=== PATIENT | female | born 1945 | race Caucasian/White ===

== ENCOUNTER 2019-01-13 12:48 | Inpatient (IN) | payer MEDICARE, BC ==
--- NOTE | 2019-01-13 13:26 | ED ---
General Adult HPI <Monty Jackson - Last Filed: 01/13/19 16:25> - General Source: patient, RN notes reviewed, old records reviewed Mode of arrival: wheelchair Limitations: no limitations <Franc Kilpatrick - Last Filed: 01/13/19 16:38> - General Chief complaint: ENT Stated complaint: Nose bleed Time Seen by Provider: 01/13/19 13:05 - History of Present Illness Initial comments: 73-year-old female patient past medical history of hypertension, hyperlipidemia , CVA presents to ED today with complaints stemming from epistaxis. Patient reports that she was seen yesterday at [facility] for epistaxis. Patient had both nares packed and was instructed to follow-up with ENT. Patient reports that today she is having some blood drip down throat which she is coughing out. Patient reports that she spoke with an individual at the ENT office whom she was referred to who recommended presenting to ED. Patient takes Plavix and aspirin. Patient currently denies any other complaints today. Patient denies chest pain, shortness of breath, abdominal pain, nausea vomiting diarrhea, headache, changes in vision. Patient still has both nares packed. Systemic: Pt denies fatigue, myalgia, fever/chills, rash. Pt denies weakness, night sweats, weight loss. Neuro: Pt denies headache, visual disturbances, syncope or pre-syncope. HEENT: Pt denies ocular discharge or irritation, otalgia, rhinorrhea, pharyngitis or notable lymphadenopathy. Cardiopulmonary: Pt denies chest pain, SOB, heart palpitations, dyspnea on exertion. Abdominal/GI: Pt denies abdominal pain, n/v/d. : Pt denies dysuria, burning w/ urination, frequency/urgency. Denies new onset urinary or bowel incontinence. MSK: Pt denies myalgia, loss of strength or function in extremities. Neuro: Pt denies new onset weakness, paresthesias. (Franc Kilpatrick) - Related Data Home Medications Medication Instructions Recorded Confirmed Aspirin [[place] Aspirin EC] 81 mg PO Q48H 01/13/19 01/13/19 Atorvastatin [Lipitor] 20 mg PO DAILY 01/13/19 01/13/19 Citalopram Hydrobromide [CeleXA] 10 mg PO DAILY 01/13/19 01/13/19 Clopidogrel [Plavix] 75 mg PO DAILY 01/13/19 01/13/19 Dokxvobw-Ssvmd-Lhmqzi Ophth 1 applic LEFT EYE DAILY 01/13/19 01/13/19 [Neosporin Ophth Oint] amLODIPine [Norvasc] 10 mg PO DAILY 01/13/19 01/13/19 Allergies Allergy/AdvReac Type Severity Reaction Status Date / Time No Known Allergies Allergy Verified 01/13/19 13:49 Review of Systems ROS Other: All systems not noted in ROS Statement are negative. <Monty Jackson - Last Filed: 01/13/19 16:25> ROS Other: All systems not noted in ROS Statement are negative. <Franc Kilpatrick - Last Filed: 01/13/19 16:38> ROS Statement: Those systems with pertinent positive or pertinent negative responses have been documented in the HPI. Past Medical History Past Medical History: Hyperlipidemia, Hypertension History of Any Multi-Drug Resistant Organisms: None Reported Past Psychological History: Anxiety Smoking Status: Former smoker Past Alcohol Use History: None Reported Past Drug Use History: None Reported <Franc Kilpatrick - Last Filed: 01/13/19 16:38> General Exam <Monty Jackson - Last Filed: 01/13/19 16:25> Limitations: no limitations <Franc Kilpatrick - Last Filed: 01/13/19 16:38> - General Exam Comments Initial Comments: Constitutional: NAD, AOX3, Pt has pleasant affect. HEENT: NC/AT, trachea midline, neck supple, no lymphadenopathy. Posterior pharynx non erythematous, without exudates. External ears appear normal, without discharge. Mucous membranes moist. Eyes PERRLA, EOM intact. There is no scleral icterus. No pallor noted. Anterior nasal packing appears in place, both nares packed. Cardiopulmonary: RRR, no murmurs, rubs or gallops, no JVD noted. Lungs CTAB in anterior and posterior taylor. No peripheral edema. Abdominal exam: Abdomen soft and non-distended. Abdomen non-tender to palpation in all 4 quadrants. Bowel sounds active in LLQ. No hepatosplenomegaly. No ecchymosis Neuro: CN II-XII grossly intact. No nuchal rigidity. MSK: No posterior calf tenderness bilaterally, homans sign negative bilaterally. Posterior tibialis and radial pulse +2 bilaterally. Sensation intact in upper and lower extremities. Full active ROM in upper and lower extremities, 5/5 stregnth. (Franc Kilpatrick) Course <Monty Jackson - Last Filed: 01/13/19 16:25> <Franc Kilpatrick - Last Filed: 01/13/19 16:38> Vital Signs 01/13/19 01/13/19 01/13/19 12:57 14:01 15:10 Temperature 97.8 F Pulse Rate 89 93 71 Respiratory 18 20 20 Rate Blood Pressure 102/42 124/56 113/56 O2 Sat by Pulse 99 99 99 Oximetry - Reevaluation(s) Reevaluation #1: 01/13/19 16:25 Case was discussed with practitioner. Chart reviewed. Case was also discussed with Dr. Brady, who will admit covered for Dr. Au, who admits for Dr. Garcia. Patient will be provided one unit of packed red cells. Patient will be held for observation with ENT consult. No active bleeding at this time. (Monty Jackson) Medical Decision Making - Lab Data Result diagrams: 01/13/19 15:05 <Monty Jackson - Last Filed: 01/13/19 16:25> - Lab Data Result diagrams: 01/13/19 15:05 <Franc Kilpatrick - Last Filed: 01/13/19 16:38> - Medical Decision Making 73-year-old female patient past medical history of hypertension, hyperlipidemia , CVA presents to ED today with complaints stemming from epistaxis. Patient reports that she was seen yesterday at [facility] for epistaxis. Patient had both nares packed and was instructed to follow-up with ENT. Patient reports that today she is having some blood drip down throat which she is coughing out. Patient reports that she spoke with an individual at the ENT office whom she was referred to who recommended presenting to ED. Patient takes Plavix and aspirin. Patient currently denies any other complaints today. Patient denies chest pain, shortness of breath, abdominal pain, nausea vomiting diarrhea, headache, changes in vision. Patient still has both nares packed. Physical exam displayed nasal packing. No other acute pathology. Laboratory investigations revealed a mild leukocytosis likely reactive, hemoglobin of 6.7. Patient to be transfused 1 unit of blood, be admitted to observation for continued evaluation and ENT evaluation. Case discussed in depth with Dr. Jackson. (Franc Kilpatrick) - Lab Data Lab Results 01/13/19 01/13/19 Range/Units 15:05 15:05 WBC 16.8 H (3.8-10.6) k/uL RBC 2.27 L (3.80-5.40) m/uL Hgb 6.7 L* (11.4-16.0) gm/dL Hct 20.3 L (34.0-46.0) % MCV 89.6 (80.0-100.0) fL MCH 29.7 (25.0-35.0) pg MCHC 33.1 (31.0-37.0) g/dL RDW 14.8 (11.5-15.5) % Plt Count 297 (150-450) k/uL Neutrophils % 75 % Lymphocytes % 17 % Monocytes % 5 % Eosinophils % 1 % Basophils % 1 % Neutrophils # 12.6 H (1.3-7.7) k/uL Lymphocytes # 2.8 (1.0-4.8) k/uL Monocytes # 0.9 (0-1.0) k/uL Eosinophils # 0.2 (0-0.7) k/uL Basophils # 0.1 (0-0.2) k/uL PT 10.5 (9.0-12.0) sec INR 1.0 (<1.2) APTT 22.5 (22.0-30.0) sec Disposition <Monty Jackson - Last Filed: 01/13/19 16:25> Is patient prescribed a controlled substance at d/c from ED?: No Time of Disposition: 16:00 <Franc Kilpatrick - Last Filed: 01/13/19 16:38> Clinical Impression: Epistaxis Disposition: ADMITTED IP TO THIS HOSP Condition: Serious Additional Instructions: Patient to adhere to previously discussed treatment plan and will take medication(s) as directed. Patient to follow up with PCP in 1-2 days. Patient to return to ED if symptoms do not improve. Please call ENT specialist today to set up appointment. Please tell them that you were diagnosed with a posterior epistaxis at [facility] yesterday and were discharged with both nostrils packed. Please tell them that you are having some continued bleeding and need to be seen tomorrow. Please return to ED if new signs or symptoms develop or if condition worsens in anyway Referrals: Bala Garcia MD [Primary Care Provider] - 1-2 days Sony Raza DO [Doctor of Osteopathic Medicine] - 1-2 days
[2019-01-13 15:37] LABS: Partial Thromboplastin Time 22.5 sec (22.0-30.0); Prothrombin Time 10.5 sec (9.0-12.0)
[2019-01-13 15:43] LABS: Basophils # (A) 0.1 k/uL (0-0.2); Basophils % (A) 1 %; Eosinophils # (A) 0.2 k/uL (0-0.7); Eosinophils % (A) 1 %; HCT 20.3 % (34.0-46.0); Lymphocytes # (A) 2.8 k/uL (1.0-4.8); Lymphocytes % (A) 17 %; MCH 29.7 pg (25.0-35.0); MCHC 33.1 g/dL (31.0-37.0); MCV 89.6 fL (80.0-100.0); Mean Platelet Volume 7.3; Monocytes # (A) 0.9 k/uL (0-1.0); Monocytes % (A) 5 %; Neutrophils # (A) 12.6 k/uL (1.3-7.7); Neutrophils % (A) 75 %; Platelet Count 297 k/uL (150-450); RBC 2.27 m/uL (3.80-5.40); RDW 14.8 % (11.5-15.5); WBC 16.8 k/uL (3.8-10.6)
[2019-01-13 15:45] LABS: HGB 6.7 gm/dL (11.4-16.0)
[2019-01-13] MEDS ORDERED: SODIUM CHLORIDE 0.9% 1,000 ML IV STA (15:59)
[2019-01-13] MEDS ORDERED: NALOXONE 0.4 MG/ML 1 ML VIAL IV PRN (16:34)
[2019-01-13] MEDS: SODIUM CHLORIDE 0.9% 1,000 ML IV SCH (22:24)
--- NOTE | 2019-01-13 23:25 | CONS ---
CONSULTATION REASON FOR CONSULTATION: Epistaxis. HISTORY: This is a 73-year-old white female who was admitted earlier today with epistaxis and anemia. The patient is not a particularly good historian, and therefore much of the history is obtained from her ER notes and the nursing staff. She had acute epistaxis yesterday and went to the hospital in [place] and had bilateral packs placed in her nose. Apparently this was controlled and she was discharged with a recommendation of ENT followup. She had recurrent bleeding today posteriorly that she was coughing up, and therefore, apparently due to the fact that she was going to be followed here locally, she went to the ER here. She was evaluated in the ER and admitted. She does take Plavix and aspirin at home and does have history of hypertension and apparently a history of epistaxis occasionally in the past also. PAST MEDICAL HISTORY: According to the nurses: 1. CVA. 2. Hyperlipidemia. 3. Hypertension. 4. Anxiety. SOCIAL HISTORY: Smoking in the past. Alcohol none. ALLERGIES: NO KNOWN DRUG ALLERGIES. HOME MEDICATIONS: 1. Aspirin. 2. Lipitor. 3. Celexa. 4. Plavix. 5. Neomycin ophthalmic ointment. 6. Norvasc. REVIEW OF SYSTEMS: The patient denies any fever or chills, headache, visual disturbance, syncope, nasal drainage other than bleeding. Denies chest pain, abdominal pain, myalgia. PHYSICAL EXAMINATION: The patient is alert and awake, in no acute distress. HEENT: Head normocephalic and atraumatic. Eyes show some drooping of the left lower eyelid, which she states is chronic. The ears show clear canals with tympanic membranes unremarkable, mobile. Nose shows bilateral single balloon packs. The right nasal pack is saturated with blood and there is in the oropharynx some posterior bleeding. The left nasal pack was initially removed, which was only approximately 4 cm long. There was no bleeding and no evidence of old blood in the left nasal cavity. The right nasal pack was then removed. This was an approximately 6 cm balloon pack. Initially there was no bleeding; however, then there was some quite profuse bleeding noted, including with nasal endoscopy posterosuperiorly, although this was too far posterior to have any cautery performed. Therefore a 10 cm double balloon Rhino Rocket Pack was placed and the balloons were inflated. This controlled the bleeding both anteriorly and posteriorly. NECK: Supple without adenopathy or tenderness. LABS: Labs showed hemoglobin of 6.7 at 3 p.m. today. ASSESSMENT: 1. Right posterior epistaxis. 2. History of hypertension. 3. Anemia. PLAN: The patient apparently is going to be moved to [facility] for further monitoring. She is getting her second unit of red blood cells and the nurses have been in contact with the hospitalist; she is under their service. She will be placed on Kefzol prophylactically also while the pack is in place, which is generally left in place for 3 days. Note that our service was not contacted about this patient until approximately 9 p.m. tonight despite the above history, including the anemia and ongoing epistaxis. If the patient is stable in the meantime, she could be discharged with followup early next week for nasal pack removal, but would need prophylactic antibiotics in the meantime. If there are questions or concerns, please feel free to contact me. MMDIEGO / IJN: [id number] /
--- NOTE | 2019-01-13 23:43 | P.HPIM ---
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 Patient has been havingon and off for several days. Patient did have nosebleed home yesterday and initially presented to [facility] where she had packing of both nostrils and was recommended to follow with ENT if the bleeding recurs. Patient did havebleeding again this morning and was also coughing of blood which made her to come to ER. Patient tried to reach ENT office but was recommended to come to ER. Patient otherwise denied any complaints of trauma. No nausea vomiting or abdominal pain. No headache or dizziness or lightheadedness. Denied any hematemesis or melena. No cough or sputum production. Denied recent upper respiratory infections.No complaints of chest pain or shortness of breath. Patient does take aspirin Plavix for secondary stroke prophylaxis. Review of Systems Constitutional: Patient denies any fever or chills . No generalized weakness or weight loss. Abdomen: Patient denied nausea vomiting and diarrhea and abdominal pain. Cardiovascular: Patient denies any chest pain or short of breath no palpitations. Respiratory: patient denied any cough is from production. No shortness of breath. Patient does have Neurologic: Patient denied any numbness or tingling headache. Musculoskeletal: Patient denies any complaints of joint swelling or deformity. Skin: Negative Psychiatric: Negative Endocrine: No heat or cold intolerance. No recent weight gain. Genitourinary: No dysuria or hematuria. All other 14 point ROS negative except the above Past Medical History Past Medical History: Hyperlipidemia, Hypertension Additional Past Medical History / Comment(s): CVA LAST YEAR, L SIDED WEAKNESS. NORMALLY USE A WHEELCHAIR AT HELPS HER TO PIVOT History of Any Multi-Drug Resistant Organisms: None Reported Past Surgical History: No Surgical Hx Reported Additional Past Anesthesia/Blood Transfusion Reaction / Comment(s): NEVER HAD A BLOOD TRANSFUSION Past Psychological History: Anxiety Smoking Status: Former smoker Past Alcohol Use History: None Reported Past Drug Use History: None Reported - Past Family History Mother Family Medical History: No Reported History Father Family Medical History: No Reported History Medications and Allergies Home Medications Medication Instructions Recorded Confirmed Type Aspirin [[place] Aspirin EC] 81 mg PO Q48H 01/13/19 01/13/19 History Atorvastatin [Lipitor] 20 mg PO DAILY 01/13/19 01/13/19 History Citalopram Hydrobromide [CeleXA] 10 mg PO DAILY 01/13/19 01/13/19 History Clopidogrel [Plavix] 75 mg PO DAILY 01/13/19 01/13/19 History Ghfglutu-Tprvz-Niyiku Ophth 1 applic LEFT EYE DAILY 01/13/19 01/13/19 History [Neosporin Ophth Oint] amLODIPine [Norvasc] 10 mg PO DAILY 01/13/19 01/13/19 History Allergies Allergy/AdvReac Type Severity Reaction Status Date / Time No Known Allergies Allergy Verified 01/13/19 16:54 Physical Exam Vitals: Vital Signs Temp Pulse Pulse Resp BP BP Pulse Ox 01/13/19 22:44 96 109/61 97 01/13/19 22:35 102 H 98/55 90 L 01/13/19 22:25 103 H 115/59 90 L 01/13/19 22:05 101 H 12 107/44 98 01/13/19 21:35 99.4 F 103 H 20 101/50 97 01/13/19 21:34 97.7 F 92 18 92/41 90 L 01/13/19 21:25 98.6 F 92 18 86/43 97 01/13/19 18:39 97.7 F 98 24 109/54 100 01/13/19 17:45 98.3 F 77 20 106/56 96 01/13/19 15:10 71 20 113/56 99 01/13/19 14:01 93 20 124/56 99 01/13/19 12:57 97.8 F 89 18 102/42 99 Intake and Output 01/13/19 01/13/19 01/14/19 14:59 22:59 06:59 Intake Total 0 Output Total 200 Balance -200 Intake: Blood Product 0 Rc As-1 Unit 0 [id number] Output: Urine 200 Other: Voiding Method Bedside Commode # Voids 1 Weight 90.718 kg PHYSICAL EXAMINATION: Patient is lying in the bed comfortably, no acute distress, awake alert and oriented.. HEENT: Normocephalic. Neck is supple. Pupils reactive. Nostrils patent bilaterally. Oral cavity is moist. Ears reveal no drainage. Neck reveals no JVD, carotid bruits, or thyromegaly. CHEST EXAMINATION: Trachea is central. Symmetrical expansion. Lung taylor clear to auscultation and percussion. CARDIAC: Normal S1, S2 with no gallops. No murmurs ABDOMEN: Soft. Bowel sounds normal. No organomegaly. No abdominal bruits. Extremities: reveal no edema. No clubbing or cyanosis Neurologically awake, alert, oriented x3 with left-sided weakness. Skin: No rash or skin lesions. Psychiatric: Coperative. Nonsuicidal Musculoskeletal: No joint swelling or deformity. Normal range of motion. Results CBC & Chem 7: 01/13/19 15:05 Labs: Abnormal Lab Results - Last 24 Hours (Table) 01/13/19 01/13/19 Range/Units 15:05 18:15 WBC 16.8 H (3.8-10.6) k/uL RBC 2.27 L (3.80-5.40) m/uL Hgb 6.7 L* (11.4-16.0) gm/dL Hct 20.3 L (34.0-46.0) % Neutrophils # 12.6 H (1.3-7.7) k/uL Crossmatch See Detail Thrombosis Risk Factor Assmnt - DVT/VTE Prophylaxis DVT/VTE Prophylaxis: Mechanical Prophylaxis ordered Assessment and Plan Assessment: Acute epistaxis likely posterior bleed Acute blood loss anemia. hemoglobin 6.7. Status post 1 unit PRBC transfusion History of CVA with left-sided weakness Hypertension Hyperlipidemia Anxiety Previous history of smoking DVT prophylaxis with SCDs Plan: Patient will be transfused with 1 unit of PRBC. Monitor H&H. No active bleeding at this time. Will hold aspirin and Plavix for possible ENT intervention. Hold blood pressure, Norvasc due to hypotension. Continue to follow closely and further recommendations based on the clinical course. Time with Patient: Greater than 30
[2019-01-14] MEDS: ceFAZolin IN SWFI 2 GM/20 ML SYRINGE IVP SCH ×3 (00:03→17:36)
[2019-01-14] MEDS: PANTOPRAZOLE 40 MG TABLET PO SCH (06:28)
[2019-01-14 06:47] LABS: Anion Gap 7 mmol/L; Blood Urea Nitrogen 39 mg/dL (7-17); Carbon Dioxide 21 mmol/L (22-30); Chloride 112 mmol/L (98-107); Glucose 112 mg/dL (74-99); Potassium 4.1 mmol/L (3.5-5.1); Sodium 140 mmol/L (137-145)
[2019-01-14 06:59] LABS: Basophils # (A) 0.1 k/uL (0-0.2); Basophils % (A) 0 %; Eosinophils % (A) 0 %; HCT 20.7 % (34.0-46.0); Lymphocytes % (A) 12 %; MCH 28.9 pg (25.0-35.0); MCV 90.3 fL (80.0-100.0); Monocytes # (A) 1.2 k/uL (0-1.0); Monocytes % (A) 7 %; Neutrophils # (A) 13.7 k/uL (1.3-7.7); Neutrophils % (A) 80 %; Platelet Count 235 k/uL (150-450); RBC 2.29 m/uL (3.80-5.40); RDW 15.3 % (11.5-15.5); WBC 17.2 k/uL (3.8-10.6)
[2019-01-14 07:23] LABS: HGB 6.6 gm/dL (11.4-16.0)
--- NOTE | 2019-01-14 07:50 | PCN ---
PROCEDURE NOTE PREOPERATIVE DIAGNOSIS: Right posterior epistaxis. POSTOPERATIVE DIAGNOSIS: Right posterior epistaxis. PROCEDURE: Nasal endoscopy, bilateral. ANESTHESIA: None. ESTIMATED BLOOD LOSS: None from the procedure. COMPLICATIONS: None. FINDINGS: Nasal septal spur on the left with no active bleeding on the left side. On the right, there is posterior epistaxis which is quite profuse posterosuperiorly with the exact site not able to be ascertained due to the perfuse nature of the bleeding. This appeared medial to the middle turbinate. PROCEDURE DESCRIPTION: The patient was in her hospital room. She has had uncontrolled epistaxis. Her packs that were in place were removed in order to evaluate. Full 0 degree nasal endoscopic exam was performed bilaterally with the above findings noted. The nasal endoscope was then withdrawn. She did require a whole posterior pack on the right to control bleeding. MMODL / IJN: [id number] /
[2019-01-14] MEDS: CITALOPRAM HYDROBROMIDE 20 MG TAB PO SCH (08:11)
[2019-01-14] MEDS: ATORVASTATIN 20 MG TAB PO SCH (08:11)
[2019-01-14] MEDS: BACITRACIN LEFT EYE SCH (08:14)
[2019-01-14] MEDS: NEOMYCIN LEFT EYE SCH (08:14)
[2019-01-14] MEDS: POLYMYXIN B LEFT EYE SCH (08:14)
[2019-01-14] MEDS: SODIUM CHLORIDE 0.9% 1,000 ML IV SCH (17:34)
[2019-01-14 19:02] LABS: Basophils # (A) 0.1 k/uL (0-0.2); Basophils % (A) 0 %; Eosinophils # (A) 0.3 k/uL (0-0.7); Eosinophils % (A) 1 %; HGB 7.4 gm/dL (11.4-16.0); Lymphocytes # (A) 1.5 k/uL (1.0-4.8); Lymphocytes % (A) 7 %; MCH 29.3 pg (25.0-35.0); MCHC 32.4 g/dL (31.0-37.0); MCV 90.5 fL (80.0-100.0); Mean Platelet Volume 7.9; Monocytes # (A) 1.1 k/uL (0-1.0); Monocytes % (A) 5 %; Neutrophils # (A) 19.6 k/uL (1.3-7.7); Neutrophils % (A) 86 %; Platelet Count 284 k/uL (150-450); RBC 2.54 m/uL (3.80-5.40); RDW 15.7 % (11.5-15.5); WBC 22.9 k/uL (3.8-10.6)
[2019-01-15] MEDS: ceFAZolin IN SWFI 2 GM/20 ML SYRINGE IVP SCH ×4 (00:34→23:43)
--- NOTE | 2019-01-15 01:09 | P.PN ---
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 Patient has been havingon and off for several days. Patient did have nosebleed home yesterday and initially presented to [facility] where she had packing of both nostrils and was recommended to follow with ENT if the bleeding recurs. Patient did havebleeding again this morning and was also coughing of blood which made her to come to ER. Patient tried to reach ENT office but was recommended to come to ER. Patient otherwise denied any complaints of trauma. No nausea vomiting or abdominal pain. No headache or dizziness or lightheadedness. Denied any hematemesis or melena. No cough or sputum production. Denied recent upper respiratory infections.No complaints of chest pain or shortness of breath. Patient does take aspirin Plavix for secondary stroke prophylaxis. 01/14/2019 Patient was seen by ENT last night and posterior nasal packing was done. Currently no active bleeding noted. Otherwise hemoglobin dropped to 6.6 today. Patient is being transfused with 1 unit PRBC. Patient denied any complaints of chest pain or shortness of breath. Patient is being continued on antibiotics in the form of cefazolin. No fever no chills. No nausea vomiting or abdominal pain. No headache or dizziness or lightheadedness. Current medications reviewed. Objective - Vital Signs Vital signs: Vital Signs Temp 98.5 F 01/14/19 16:00 Pulse 101 H 01/14/19 16:00 Resp 20 01/14/19 21:43 BP 97/66 01/14/19 16:00 Pulse Ox 92 L 01/14/19 16:00 Intake & Output 01/14/19 01/14/19 01/15/19 06:59 18:59 06:59 Intake Total 630 310 Output Total 200 Balance 430 310 Weight 115 kg Intake: Intake, IV Titration 80 Amount Sodium Chloride 0.9% 1, 80 000 ml @ 20 mls/hr IV . Q24H [facility] Rx#:[id number] Oral 240 Blood Product 310 310 Rc As-1 Unit 310 [id number] Rc Cpda-1 Unit 310 [id number] Output: Urine 200 Other: Voiding Method Bedpan Diaper Bedpan # Voids 2 - Exam PHYSICAL EXAMINATION: Patient is lying in the bed comfortably, no acute distress, awake alert and oriented.. HEENT: Normocephalic. Neck is supple. Pupils reactive. Nostrils patent bilaterally. Oral cavity is moist. Ears reveal no drainage. Neck reveals no JVD, carotid bruits, or thyromegaly. CHEST EXAMINATION: Trachea is central. Symmetrical expansion. Lung taylor clear to auscultation and percussion. CARDIAC: Normal S1, S2 with no gallops. No murmurs ABDOMEN: Soft. Bowel sounds normal. No organomegaly. No abdominal bruits. Extremities: reveal no edema. No clubbing or cyanosis Neurologically awake, alert, oriented x3 with left-sided weakness. Skin: No rash or skin lesions. Psychiatric: Coperative. Nonsuicidal Musculoskeletal: No joint swelling or deformity. Normal range of motion. - Labs CBC & Chem 7: 01/14/19 18:40 01/14/19 05:54 Labs: Abnormal Lab Results - Last 24 Hours (Table) 01/13/19 01/14/19 01/14/19 Range/Units 18:15 05:54 05:54 WBC 17.2 H (3.8-10.6) k/uL RBC 2.29 L (3.80-5.40) m/uL Hgb 6.6 L* (11.4-16.0) gm/dL Hct 20.7 L (34.0-46.0) % RDW (11.5-15.5) % Neutrophils # 13.7 H (1.3-7.7) k/uL Monocytes # 1.2 H (0-1.0) k/uL Chloride 112 H (98-107) mmol/L Carbon Dioxide 21 L (22-30) mmol/L BUN 39 H (7-17) mg/dL Glucose 112 H (74-99) mg/dL Calcium 8.0 L (8.4-10.2) mg/dL Crossmatch See Detail 01/14/19 Range/Units 18:40 WBC 22.9 H (3.8-10.6) k/uL RBC 2.54 L (3.80-5.40) m/uL Hgb 7.4 L (11.4-16.0) gm/dL Hct 23.0 L (34.0-46.0) % RDW 15.7 H (11.5-15.5) % Neutrophils # 19.6 H (1.3-7.7) k/uL Monocytes # 1.1 H (0-1.0) k/uL Chloride (98-107) mmol/L Carbon Dioxide (22-30) mmol/L BUN (7-17) mg/dL Glucose (74-99) mg/dL Calcium (8.4-10.2) mg/dL Crossmatch Assessment and Plan Assessment: Acute epistaxis likely posterior bleed. Status post nasal packing by ENT. Acute blood loss anemia. hemoglobin 6.7--6.6. Status post 2 unit PRBC transfusion on 01/13/2019 and 1 unit PRBC on 01/14/2019 History of CVA with left-sided weakness Hypertension Hyperlipidemia Anxiety Previous history of smoking DVT prophylaxis with SCDs Plan: Monitor H&H. Transfuse as needed. No active bleeding at this time. Will hold aspirin and Plavix . Appreciate ENT evaluation.. Hold blood pressure medications, Norvasc due to hypotension. Continue to follow closely and further recommendations based on the clinical course. Time with Patient: Greater than 30
[2019-01-15 10:08] LABS: Anisocytosis Slight; Basophils # (A) 0.1 k/uL (0-0.2); Basophils % (A) 0 %; Eosinophils % (A) 0 %; HCT 21.4 % (34.0-46.0); HGB 7.2 gm/dL (11.4-16.0); Lymphocytes # (A) 1.8 k/uL (1.0-4.8); Lymphocytes % (A) 7 %; MCH 29.9 pg (25.0-35.0); MCHC 33.9 g/dL (31.0-37.0); MCV 88.3 fL (80.0-100.0); Mean Platelet Volume 7.3; Monocytes # (A) 1.4 k/uL (0-1.0); Monocytes % (A) 6 %; Neutrophils # (A) 21.3 k/uL (1.3-7.7); Neutrophils % (A) 86 %; Platelet Count 302 k/uL (150-450); RBC 2.42 m/uL (3.80-5.40); RDW 17.8 % (11.5-15.5); WBC 24.8 k/uL (3.8-10.6)
[2019-01-15] MEDS: CITALOPRAM HYDROBROMIDE 20 MG TAB PO SCH (10:10)
[2019-01-15] MEDS: PANTOPRAZOLE 40 MG TABLET PO SCH (10:10)
[2019-01-15] MEDS: ATORVASTATIN 20 MG TAB PO SCH (10:11)
[2019-01-15] MEDS: ACETAMINOPHEN TAB 325 MG TAB PO PRN ×3 (10:56→23:44)
[2019-01-15] MEDS: NEOMYCIN LEFT EYE SCH (10:58)
[2019-01-15] MEDS: POLYMYXIN B LEFT EYE SCH (10:58)
[2019-01-15] MEDS: BACITRACIN LEFT EYE SCH (10:58)
[2019-01-15 11:03] LABS: Anion Gap 7 mmol/L; Blood Urea Nitrogen 19 mg/dL (7-17); Carbon Dioxide 22 mmol/L (22-30); Chloride 111 mmol/L (98-107); Glucose 134 mg/dL (74-99); Potassium 3.7 mmol/L (3.5-5.1); Sodium 140 mmol/L (137-145)
--- NOTE | 2019-01-15 16:08 | XR ---
EXAMINATION TYPE: XR chest 1V DATE OF EXAM: 01/15/2019 COMPARISON: None INDICATION: Cough TECHNIQUE: Single frontal view of the chest is obtained. FINDINGS: The heart size is normal. The pulmonary vasculature is normal. Lingular infiltrate is present at the cardiac apex. No additional infiltrates are evident. There is a chronic rotator cuff tear of the right shoulder and suspected at the left shoulder. IMPRESSION: 1. Clinical correlation recommended for lingular pneumonia. Follow-up can be performed.
[2019-01-15] MEDS: SODIUM CHLORIDE 0.9% 1,000 ML IV SCH (16:44)
[2019-01-15 17:02] LABS: Appearance,Urine Clear (Clear); Bacteria,Urine Rare /hpf; Bilirubin,Urine Negative (Negative); Blood,Urine Negative (Negative); Color,Urine Yellow; Glucose,Urine (UA) Negative (Negative); Ketones,Urine Trace (Negative); Leukocyte Esterase,Urine Trace (Negative); Mucus,Urine Rare /hpf; Nitrite,Urine Negative (Negative); PH, Urine 5.5 (5.0-8.0); Protein,Urine Trace (Negative); RBC,Urine 1 /hpf (0-5); Specific Gravity,Urine 1.029 (1.001-1.035); Squamous Epithelial Cell,Urine 1 /hpf (0-4); Urobilinogen,Urine <2.0 mg/dL (<2.0)
--- NOTE | 2019-01-15 18:42 | PN ---
PROGRESS NOTE HISTORY: Patient had a posterior epistaxis on the right, which was treated with a posterior nasal packing a day and a half ago. She has had no further epistaxis. Her hemoglobin is stabilized, but still anemic at 7.2 this morning. Her white blood cell count has been rising somewhat and they are working this up presently. Is unknown as to her baseline labs otherwise. She does have some discomfort from the nasal pack, but this is well controlled with pain medication. She is having no purulent nasal discharge. PHYSICAL EXAM: The patient is up in the hospital chair in no acute distress. She is conversant, awake and alert. The nasal exam shows no bleeding on the left. The double balloon pack is in place on the right without any active bleeding. Oropharynx shows no blood or abnormal lesions. NECK: Supple without adenopathy or tenderness. ASSESSMENT: 1. Right posterior epistaxis-currently controlled. 2. Anemia. PLAN: Generally speaking, nasal pack such as this is left in place for at least 3 days. This is too early to remove at this point. Some of the decision on removal of the packing is up to the patient's disposition. If she is able to be discharged on the weekend, then we could see her back in our office in the early week for packing removal. If she is here through the , this may be able to be removed later on Friday or Friday as I will be out of town most of the weekend. We will keep tabs on the patient's disposition and again if she is able to be stable and discharged over the weekend, then please have her contact our office Friday morning to be seen Friday or Friday for packing removal. If there are questions or concerns, please contact me in the meantime. MMODL / IJN: [id number] /
--- NOTE | 2019-01-15 23:21 | P.PN ---
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 Patient has been havingon and off for several days. Patient did have nosebleed home yesterday and initially presented to [facility] where she had packing of both nostrils and was recommended to follow with ENT if the bleeding recurs. Patient did havebleeding again this morning and was also coughing of blood which made her to come to ER. Patient tried to reach ENT office but was recommended to come to ER. Patient otherwise denied any complaints of trauma. No nausea vomiting or abdominal pain. No headache or dizziness or lightheadedness. Denied any hematemesis or melena. No cough or sputum production. Denied recent upper respiratory infections.No complaints of chest pain or shortness of breath. Patient does take aspirin Plavix for secondary stroke prophylaxis. 01/14/2019 Patient was seen by ENT last night and posterior nasal packing was done. Currently no active bleeding noted. Otherwise hemoglobin dropped to 6.6 today. Patient is being transfused with 1 unit PRBC. Patient denied any complaints of chest pain or shortness of breath. Patient is being continued on antibiotics in the form of cefazolin. No fever no chills. No nausea vomiting or abdominal pain. No headache or dizziness or lightheadedness. 01/15/2019 Patient denied any complaints of increasing nasal pain. Posterior nasal packing is in place and ENT recommends for it to be continued at least for 3 days. Patient continues to have increasing WBC count. WBC count is 24.0 today. Chest x-ray showed correlate for lingular pneumonia. UA is negative for infection Patient does not have complaints of shortness of breath. No fever. No tachycardia. No tachypnea. No complaints of sputum production. Patient is currently on cefazolin which will be continued and monitor next 24 hours for any signs of infection. Follow-up CBC and BMP tomorrow. Otherwise patient is currently hemodynamically stable. Current medications reviewed. Objective - Vital Signs Vital signs: Vital Signs Temp 97.7 F 01/15/19 15:00 Pulse 89 01/15/19 17:45 Resp 20 01/15/19 15:00 BP 102/54 01/15/19 15:00 Pulse Ox 93 L 01/15/19 15:00 Intake & Output 01/15/19 01/15/19 01/16/19 06:59 18:59 06:59 Intake Total 240 Output Total 300 Balance -60 Intake: Oral 240 Output: Urine 300 Other: Voiding Method Bedpan Bedpan # Voids 1 3 # Bowel Movements 0 - Exam PHYSICAL EXAMINATION: Patient is lying in the bed comfortably, no acute distress, awake alert and oriented.. HEENT: Normocephalic. Neck is supple. Pupils reactive. Nostrils patent bilaterally. Oral cavity is moist. Ears reveal no drainage. Neck reveals no JVD, carotid bruits, or thyromegaly. CHEST EXAMINATION: Trachea is central. Symmetrical expansion. Lung taylor clear to auscultation and percussion. CARDIAC: Normal S1, S2 with no gallops. No murmurs ABDOMEN: Soft. Bowel sounds normal. No organomegaly. No abdominal bruits. Extremities: reveal no edema. No clubbing or cyanosis Neurologically awake, alert, oriented x3 with left-sided weakness. Skin: No rash or skin lesions. Psychiatric: Coperative. Nonsuicidal Musculoskeletal: No joint swelling or deformity. Normal range of motion. - Labs CBC & Chem 7: 01/15/19 09:03 01/15/19 09:03 Labs: Abnormal Lab Results - Last 24 Hours (Table) 01/15/19 01/15/19 01/15/19 Range/Units 09:03 09:03 16:35 WBC 24.8 H (3.8-10.6) k/uL RBC 2.42 L (3.80-5.40) m/uL Hgb 7.2 L (11.4-16.0) gm/dL Hct 21.4 L (34.0-46.0) % RDW 17.8 H (11.5-15.5) % Neutrophils # 21.3 H (1.3-7.7) k/uL Monocytes # 1.4 H (0-1.0) k/uL Chloride 111 H (98-107) mmol/L BUN 19 H (7-17) mg/dL Glucose 134 H (74-99) mg/dL Calcium 8.0 L (8.4-10.2) mg/dL Urine Protein Trace H (Negative) Urine Ketones Trace H (Negative) Ur Leukocyte Esterase Trace H (Negative) Urine Bacteria Rare H (None) /hpf Urine Mucus Rare H (None) /hpf Assessment and Plan Assessment: Acute epistaxis likely posterior bleed. Status post nasal packing by ENT. Nasal packing to be kept for at least 3 days as per ENT. Worsening leukocytosis. Rule out infection. Acute blood loss anemia. hemoglobin 6.7--6.6--7.2. Status post 2 unit PRBC transfusion on 01/13/2019 and 1 unit PRBC on 01/14/2019 History of CVA with left-sided weakness Hypertension Hyperlipidemia Anxiety Previous history of smoking DVT prophylaxis with SCDs Plan: Monitor H&H. Transfuse as needed. No active bleeding at this time. Increase IV hydration, normal saline at 70 mL per hour. Will hold aspirin and Plavix . Appreciate ENT evaluation.. Hold blood pressure medications, Norvasc due to hypotension. Continue to follow closely and further recommendations based on the clinical course. Time with Patient: Greater than 30
[2019-01-16] MEDS: HYDROcodone/APAP 5-325MG 1 EACH TAB PO PRN ×3 (02:28→14:03)
[2019-01-16] MEDS: PANTOPRAZOLE 40 MG TABLET PO SCH (09:05)
[2019-01-16] MEDS: ceFAZolin IN SWFI 2 GM/20 ML SYRINGE IVP SCH ×3 (09:05→23:29)
[2019-01-16] MEDS: ATORVASTATIN 20 MG TAB PO SCH (09:05)
[2019-01-16] MEDS: CITALOPRAM HYDROBROMIDE 20 MG TAB PO SCH (09:05)
[2019-01-16] MEDS: POLYMYXIN B LEFT EYE SCH (09:23)
[2019-01-16] MEDS: NEOMYCIN LEFT EYE SCH (09:23)
[2019-01-16] MEDS: BACITRACIN LEFT EYE SCH (09:23)
[2019-01-16 09:57] LABS: Anisocytosis Slight; Basophils % (A) 0 %; Eosinophils # (A) 0.2 k/uL (0-0.7); Eosinophils % (A) 1 %; HCT 20.4 % (34.0-46.0); Hypochromasia Slight; Lymphocytes # (A) 1.5 k/uL (1.0-4.8); Lymphocytes % (A) 8 %; MCH 29.3 pg (25.0-35.0); MCHC 31.6 g/dL (31.0-37.0); MCV 92.7 fL (80.0-100.0); Mean Platelet Volume 7.8; Monocytes # (A) 1.2 k/uL (0-1.0); Monocytes % (A) 6 %; Neutrophils # (A) 16.7 k/uL (1.3-7.7); Neutrophils % (A) 84 %; Platelet Count 306 k/uL (150-450); RDW 17.4 % (11.5-15.5); WBC 19.8 k/uL (3.8-10.6)
[2019-01-16 10:01] LABS: HGB 6.4 gm/dL (11.4-16.0)
[2019-01-16 10:06] LABS: Anion Gap 6 mmol/L; Blood Urea Nitrogen 16 mg/dL (7-17); Calcium 7.8 mg/dL (8.4-10.2); Carbon Dioxide 21 mmol/L (22-30); Chloride 111 mmol/L (98-107); Glucose 109 mg/dL (74-99); Potassium 3.6 mmol/L (3.5-5.1); Sodium 138 mmol/L (137-145)
[2019-01-16] MEDS ORDERED: FUROSEMIDE 10 MG/ML 2 ML VIAL IV ONE (11:12)
[2019-01-16] MEDS: ACETAMINOPHEN TAB 325 MG TAB PO PRN ×2 (11:45→17:20)
--- NOTE | 2019-01-16 15:22 | PN ---
PROGRESS NOTE CHIEF COMPLAINT: Right posterior epistaxis. HISTORY: The patient was admitted 3 days ago with right posterior epistaxis. She has had a posterior pack in the right side of the nose for 3 days. She has developed some mild purulence on this. She has had no further epistaxis. Her hemoglobin has actually decreased a little bit more again despite having no epistaxis. She is being transfused again. PHYSICAL EXAM: The patient is alert and awake. Her is also present today. The nasal exam shows no abnormalities on the left. The right nasal pack is intact and dry other than some purulence around this. The oropharynx shows no posterior bleeding. The posterior pack on the right was removed without difficulty. There was excoriation of the septum as well as the lateral nasal wall/anterior to the middle turbinate and these areas were cauterized with silver nitrate. A small pledget of nasal dressing was placed between the middle turbinate and septum where the original bleeding appeared to be coming from. This is dissolvable. This was moistened with Afrin. The right nasal cavity is otherwise unremarkable, although there is some mild purulence coming from the middle meatus. ASSESSMENT: 1. Right posterior epistaxis-currently controlled. 2. History of anticoagulation. 3. Acute sinusitis on the right. PLAN: The patient will be maintained on Kefzol. No nose blowing. She will follow up as needed in our office. She will continue to be inpatient under the hospitalist service. No outside blood counts are available, but certainly if she has continued anemia, she should have workup for other area of bleeding including GI bleed, and/or Hematology consultation to rule out any mild proliferative disorders. Note that I will be out of town the rest of the weekend and Dr. Raza is on-call. MMODL / IJN: [id number] /
--- NOTE | 2019-01-16 18:04 | PN ---
PROGRESS NOTE DATE OF SERVICE: 01/16/2019 This 73-year-old woman who was admitted with significant epistaxis also had drop in hemoglobin. The patient being transfused at this time. The patient also had nasal packing by ENT. Patient being closely monitored. WBC is 19.8, hemoglobin 6.4. PAST MEDICAL HISTORY: Reviewed. REVIEW OF SYSTEMS: CARDIOVASCULAR: No angina or palpitations. RESPIRATION: As mentioned earlier. GI: As mentioned earlier. : No dysuria or hematuria. CURRENT MEDICATIONS ARE: 1. Tylenol p.r.n. 2. Mccoll 5 mg. 3. Lipitor. 4. Kefzol 2 g IV q.8 hours. 5. Celexa 10 mg daily. 6. Narcan 0.2 q.2h p.r.n. 7. Protonix 40 mg. 8. IV fluids. PHYSICAL EXAM: Patient is alert, oriented x3. Pulse is 68. Blood pressure 86/49, respiration 16, temperature 98.2, pulse ox 93% on room air. HEENT: Conjunctivae normal. NECK: No jugular venous distention. CARDIOVASCULAR: S1, S2 muffled. Respirations: Breath sounds diminished in the bases. A few scattered rhonchi and crackles. Abdomen is soft, nontender. Legs are no edema, no swelling. LABS: At this time shows WBC 19.1, hemoglobin 6.4, sodium 138, potassium 3.6. ASSESSMENT: 1. Acute epistaxis, possibly posterior bleed status post nasal packing. 2. Worsening leukocytosis possibly infection. 3. Relative hypotension. 4. Acute blood loss anemia, status post transfusion. 5. History of cerebrovascular accident with left-sided weakness. 6. Hypertension. 7. Hyperlipidemia. 8. Anxiety. 9. Previous history of smoking. 10. . 11.Remote history of nicotine dependence. 12.History of cerebrovascular accident. RECOMMENDATIONS AND DISCUSSION: In this 73-year-old woman who presented with multiple complicated medical issues, we will monitor the patient closely, continue the current medications, management and symptomatic treatment. Continue the broad-spectrum IV antibiotics. Otherwise, continue the rest of medications. I would also obtain cultures. IV fluids symptomatic treatment. DVT prophylaxis. Guarded prognosis. Further recommendations to follow. Hold antiplatelet agents. Hold the Norvasc also. MMODL / IJN: [id number] /
[2019-01-16] MEDS: IOPAMIDOL-300 CONTRAST 30 ML VIAL (ORAL USE) PO PRN ×2 (18:38→19:53)
[2019-01-16] MEDS: SODIUM CHLORIDE 0.9% 1,000 ML IV SCH (18:39)
--- NOTE | 2019-01-16 21:12 | CT ---
EXAMINATION TYPE: CT abdomen pelvis wo con DATE OF EXAM: 01/16/2019 COMPARISON: None HISTORY: Generalized abdominal, back, hip, leg pain. CT DLP: 1933.7 mGycm Automated exposure control for dose reduction was used. TECHNIQUE: Helical acquisition of images was performed from the lung bases through the pelvis. FINDINGS: There is patchy atelectasis and infiltrate at the posterior lung bases. There is mild pleural thicken ing at the left lung base. Small left pleural effusion. Heart size is normal. Bile ducts are not dilated. There is a 1.5 cm cyst in is some capsular anterior left lobe of the live r. There is no gallbladder wall thickening. Gallbladder measures 4.3 cm in diameter. The bile ducts a re not dilated. Spleen appears normal. There is no pancreatic mass. There is atherosclerotic vascular calcification. There is no adrenal mass. There are renal parapelvic cysts. I see no definite hydronephrosis. There i s no retroperitoneal adenopathy. Bladder distends smoothly. There is 2 cm calcified uterine fibroid. Uterus shows some atrophy. There is no free fluid in the pelvis. There is no inguinal hernia. There i s no mesenteric edema. There is oral contrast in the bowel without evidence of a bowel obstruction. There is multilevel spondylotic changes in the lumbar spine. There is no compression fracture. There is spurring of the endplates. IMPRESSION: MULTIPLE PARAPELVIC SMALL RENAL CYSTS. NO RENAL OBSTRUCTION. ATHEROSCLEROTIC VASCULAR DISEASE. BILATE RAL BASILAR PULMONARY INFILTRATES AND ATELECTASIS. SMALL LEFT PLEURAL EFFUSION. MILDLY ENLARGED GALLB LADDER COULD RELATE TO GALLBLADDER DYSFUNCTION.
[2019-01-17] MEDS: ALPRAZolam 0.25 MG TAB PO PRN ×2 (03:00→07:21)
[2019-01-17] MEDS: ATORVASTATIN 20 MG TAB PO SCH (07:20)
[2019-01-17] MEDS: CITALOPRAM HYDROBROMIDE 20 MG TAB PO SCH (07:21)
[2019-01-17] MEDS: MULTIVITAMINS, THERA 1 EACH TAB PO SCH (07:21)
[2019-01-17] MEDS: HYDROcodone/APAP 5-325MG 1 EACH TAB PO PRN (07:21)
[2019-01-17] MEDS: PANTOPRAZOLE 40 MG TABLET PO SCH (07:21)
[2019-01-17] MEDS: BACITRACIN LEFT EYE SCH (07:22)
[2019-01-17] MEDS: NEOMYCIN LEFT EYE SCH (07:22)
[2019-01-17] MEDS: ceFAZolin IN SWFI 2 GM/20 ML SYRINGE IVP SCH ×3 (07:22→23:34)
[2019-01-17] MEDS: FOLIC ACID 1 MG TAB PO SCH (07:22)
[2019-01-17] MEDS: POLYMYXIN B LEFT EYE SCH (07:22)
[2019-01-17] MEDS: THIAMINE 100 MG TAB PO SCH (07:23)
[2019-01-17 10:32] LABS: Anisocytosis Slight; Basophils # (A) 0.1 k/uL (0-0.2); Basophils % (A) 0 %; Eosinophils # (A) 0.5 k/uL (0-0.7); Eosinophils % (A) 3 %; HCT 24.8 % (34.0-46.0); Lymphocytes # (A) 1.8 k/uL (1.0-4.8); Lymphocytes % (A) 11 %; MCH 31.5 pg (25.0-35.0); MCHC 34.7 g/dL (31.0-37.0); MCV 90.7 fL (80.0-100.0); Mean Platelet Volume 6.9; Monocytes # (A) 0.9 k/uL (0-1.0); Monocytes % (A) 6 %; Neutrophils # (A) 13.1 k/uL (1.3-7.7); Neutrophils % (A) 79 %; Platelet Count 371 k/uL (150-450); Poikilocytosis Slight; RBC 2.74 m/uL (3.80-5.40); RDW 16.7 % (11.5-15.5); WBC 16.6 k/uL (3.8-10.6)
[2019-01-17 10:34] LABS: HGB 8.6 gm/dL (11.4-16.0)
[2019-01-17 10:46] LABS: Anion Gap 7 mmol/L; Blood Urea Nitrogen 12 mg/dL (7-17); Calcium 7.8 mg/dL (8.4-10.2); Carbon Dioxide 21 mmol/L (22-30); Chloride 111 mmol/L (98-107); Glucose 84 mg/dL (74-99); Potassium 3.5 mmol/L (3.5-5.1); Sodium 139 mmol/L (137-145)
[2019-01-17] MEDS: HYDROcodone/APAP 7.5-325MG 1 EACH TAB PO PRN ×2 (15:33→23:35)
[2019-01-17] MEDS: SODIUM CHLORIDE 0.9% 1,000 ML IV SCH (15:34)
--- NOTE | 2019-01-17 16:35 | PN ---
PROGRESS NOTE DATE OF SERVICE: 01/17/2019 This 73-year-old woman was admitted with epistaxis, also drop in hemoglobin. The patient also complains of back pain without any radiation. Abdomen and pelvis CAT scan was done yesterday. The patient has multiple transfusions. ENT is also recommended packing of the nostril. The CT scan showed multiple parapelvic small renal cyst. No real obstruction. No atherosclerotic vascular disease and bibasilar infiltrate and atelectasis and mildly enlarged gallbladder secondary dysfunction. PAST MEDICAL HISTORY: Reviewed. REVIEW OF SYSTEMS: CARDIOVASCULAR: No angina. RESPIRATORY: As mentioned. GI: As mentioned. : No dysuria. NERVOUS SYSTEM: As mentioned earlier. CURRENT MEDICATIONS: Reviewed and include: 1. Tylenol 650 q.6h p.r.n. 2. [place] 7.5 q.4h p.r.n. 3. Xanax 0.5 t.i.d. 4. Lipitor 20 mg daily. 5. Kefzol 2 g IV q.8. 6. Celexa 10 mg daily. 7. Folic acid 1 mg. 8. Multivitamins one p.o. daily. 9. Narcan 0.2 q.2h p.r.n. 10.Protonix 40 mg daily. 11.Vitamin B1 100 mg p.o. daily. PHYSICAL EXAM: Patient is alert, oriented x3. Pulse is 50, blood pressure 130/56, respiration 20, temperature is normal, pulse ox 98% on room air. HEENT: Conjunctivae normal. NECK: No jugular venous distention. CARDIOVASCULAR: S1, S2. RESPIRATORY: Breath sounds diminished in the bases. A few scattered rhonchi. No crackles. ABDOMEN: Soft, nontender. No mass palpable. LEGS/BACK: Minimal tenderness, otherwise no tenderness. Straight leg raise test is negative. NERVOUS SYSTEM: No focal deficits. LABS: At this time shows WBC 16.6, hemoglobin is 8.6. ASSESSMENT: 1. Acute epistaxis, possibly posterior bleed, status post nasal packing. 2. Acute blood loss anemia, status post transfusion. 3. Worsening leukocytosis possibly infection. 4. Relative hypotension. 5. Back pain possibly musculoskeletal, improved. 6. Acute blood loss anemia, status post transfusion. 7. History of CVI, left-sided weakness. 8. Hypertension. 9. Hyperlipidemia. 10.History of anxiety. 11.Previous history of smoking. 12.Remote history of nicotine dependence. 13.History of CVI. RECOMMENDATIONS AND DISCUSSION: I recommend to continue current management and symptomatic treatment. Monitor. Patient has had transfusions. Otherwise, continue the current medication including antibiotics. Guarded prognosis because of multiple complex medical issues and further recommendations to follow. The CT scan noted. Closely follow with ENT. Further recommendations to follow. MMODL / IJN: [id number] /
[2019-01-17 19:47] LABS: Albumin 2.6 g/dL (3.5-5.0); Bilirubin, Delta 0.3 mg/dL (0.0-0.2); Bilirubin,Unconjugated 0.5 mg/dL (0.0-1.1); Total Bilirubin 0.8 mg/dL (0.2-1.3); Total Protein 5.1 g/dL (6.3-8.2)
--- NOTE | 2019-01-17 23:43 | P.CONS ---
History of Present Illness - Reason for Consult Consult date: 01/17/19 Epistaxis Requesting physician: Sony Raza - Chief Complaint Epistaxis - History of Present Illness Ms. Falcon is a 73-year-old female with a known history of hypertension, hyperlipidemia and recent CVA last year leaving her with residual left sided weakness. She originally presented to hospital with nose bleed, at that time stating it was on and off over the past week, but then persisted without quick clotting, she presented to [facility] and packing in bilateral nostrils was placed. The following day the epistaxis started again and now she was having associated hemoptysis therefore presented to our hospital to have further evaluation with ENT. She does take aspirin and plavix since CVA, denied any recent trauma to nasal cavity, denied recent sinus or Upper respiratory infections. On admission hemoglobin was 6.7 and her WBC was also elevated. Urine Culture and Blood Cultures are pending. ENT examined with nasal endoscopy. Her Epistaxis has resolved, she has no complaints during evaluation. Review of Systems A 14 point review of systems assessed and completed and all neg except HPI Past Medical History Past Medical History: Hyperlipidemia, Hypertension Additional Past Medical History / Comment(s): CVA LAST YEAR, L SIDED WEAKNESS. NORMALLY USE A WHEELCHAIR AT HELPS HER TO PIVOT History of Any Multi-Drug Resistant Organisms: None Reported Past Surgical History: No Surgical Hx Reported Additional Past Anesthesia/Blood Transfusion Reaction / Comm: NEVER HAD A BLOOD TRANSFUSION Past Psychological History: Anxiety Smoking Status: Former smoker Past Alcohol Use History: None Reported Past Drug Use History: None Reported - Past Family History Mother Family Medical History: No Reported History Father Family Medical History: No Reported History Medications and Allergies Home Medications Medication Instructions Recorded Confirmed Type Aspirin [S[place]th Aspirin EC] 81 mg PO Q48H 01/13/19 01/13/19 History Atorvastatin [Lipitor] 20 mg PO DAILY 01/13/19 01/13/19 History Citalopram Hydrobromide [CeleXA] 10 mg PO DAILY 01/13/19 01/13/19 History Clopidogrel [Plavix] 75 mg PO DAILY 01/13/19 01/13/19 History Thcwbusj-[id number]-Pbzflq Ophth 1 applic LEFT EYE DAILY 01/13/19 01/13/19 History [Neosporin Ophth Oint] amLODIPine [Norvasc] 10 mg PO DAILY 01/13/19 01/13/19 History Allergies Allergy/AdvReac Type Severity Reaction Status Date / Time No Known Allergies Allergy Verified 01/13/19 16:54 Physical Exam Vitals: Vital Signs Temp Pulse Pulse Pulse Pulse Pulse Resp 01/17/19 13:30 98.3 F 50 L 74 72 16 01/17/19 06:18 97.9 F 84 16 01/16/19 23:06 97.6 F 75 18 01/16/19 18:27 98.0 F 70 16 BP BP BP BP BP Pulse Ox 01/17/19 13:30 113/56 130/74 138/61 98 01/17/19 06:18 113/66 94 L 01/16/19 23:06 98/61 95 01/16/19 18:27 88/54 95 Intake and Output 01/17/19 01/17/19 01/17/19 06:59 14:59 22:59 Intake Total 600 Balance 600 Intake: Oral 600 Other: # Voids 2 1 1 Gen: No acute distress, alert and oriented Head: Nasal Packing in place, skin pale Left eye droop from previous CVA Neck: Supple, trachea midline No lymphadenopathy on exam Lungs: CTA Bilateral, no increased effort Heart: Tachy Regular Abdomen: S/ND/NT Extremities without rash or edema, Neuro: Left sided residual weakness noted from previous CVA Results CBC & Chem 7: 01/17/19 10:09 01/17/19 10:09 Labs: Abnormal Lab Results - Last 24 Hours (Table) 01/13/19 01/17/19 01/17/19 Range/Units 18:15 10:09 10:09 WBC 16.6 H (3.8-10.6) k/uL RBC 2.74 L (3.80-5.40) m/uL Hgb 8.6 L D (11.4-16.0) gm/dL Hct 24.8 L (34.0-46.0) % RDW 16.7 H (11.5-15.5) % Neutrophils # 13.1 H (1.3-7.7) k/uL Chloride 111 H (98-107) mmol/L Carbon Dioxide 21 L (22-30) mmol/L Calcium 7.8 L (8.4-10.2) mg/dL Crossmatch See Detail Chest x-ray: report reviewed CT scan - abdomen: report reviewed CT scan - pelvis: report reviewed Assessment and Plan Plan: Assessment and Recommendations: 1. Persistent Epistaxis: - ENT is following - Status Post Endoscopy of nasal cavity and packing - Prophylaxic Antibiotics. 2. Leukocytosis: Reactive - Secondary to anemia and/or underlying infection - Await blood cultures and urine cultures to result - Reviewed CT scan and Chest xray no significant findings - Other underlying conditions (inflammatory) maybe further reviewed if bleeding and leukocytosis not improving with antibiotics and conservative treatment 3. Acute Blood Loss Anemia: - Continue Supportive transfusions for hemoglobin less than 7, will check iron studies as she may benefit from iron parental. Thank you for allowing us to participate in the care of your patient Physician Attest: I have discussed the completed history and physical and developed the complete impression and plan, agree with above dictation , dictated as a scribe.
[2019-01-18] MEDS: HYDROcodone/APAP 7.5-325MG 1 EACH TAB PO PRN ×2 (06:17→14:58)
[2019-01-18 07:45] VITALS: RESP 18
[2019-01-18] MEDS: CITALOPRAM HYDROBROMIDE 20 MG TAB PO SCH (07:53)
[2019-01-18] MEDS: PANTOPRAZOLE 40 MG TABLET PO SCH (07:53)
[2019-01-18] MEDS: ATORVASTATIN 20 MG TAB PO SCH (07:53)
[2019-01-18] MEDS: NEOMYCIN LEFT EYE SCH (07:54)
[2019-01-18] MEDS: BACITRACIN LEFT EYE SCH (07:54)
[2019-01-18] MEDS: POLYMYXIN B LEFT EYE SCH (07:54)
[2019-01-18] MEDS: ceFAZolin IN SWFI 2 GM/20 ML SYRINGE IVP SCH ×2 (08:00→16:07)
[2019-01-18 09:58] LABS: Iron Saturation 3.49 (12.00-45.00)
[2019-01-18 10:00] LABS: Anisocytosis Slight; Basophils % (A) 0 %; Eosinophils # (A) 0.6 k/uL (0-0.7); Eosinophils % (A) 4 %; HCT 28.8 % (34.0-46.0); HGB 9.4 gm/dL (11.4-16.0); Hypochromasia Slight; Lymphocytes # (A) 1.4 k/uL (1.0-4.8); Lymphocytes % (A) 11 %; MCH 30.1 pg (25.0-35.0); MCHC 32.8 g/dL (31.0-37.0); Mean Platelet Volume 6.9; Monocytes # (A) 0.8 k/uL (0-1.0); Monocytes % (A) 6 %; Neutrophils # (A) 10.3 k/uL (1.3-7.7); Neutrophils % (A) 77 %; Platelet Count 449 k/uL (150-450); Poikilocytosis Slight; RBC 3.13 m/uL (3.80-5.40); RDW 16.2 % (11.5-15.5); WBC 13.4 k/uL (3.8-10.6)
[2019-01-18 10:03] LABS: Anion Gap 5 mmol/L; Blood Urea Nitrogen 13 mg/dL (7-17); Calcium 7.8 mg/dL (8.4-10.2); Carbon Dioxide 23 mmol/L (22-30); Chloride 111 mmol/L (98-107); Glucose 120 mg/dL (74-99); Potassium 3.6 mmol/L (3.5-5.1); Sodium 139 mmol/L (137-145)
[2019-01-18] MEDS: FOLIC ACID 1 MG TAB PO SCH (11:38)
[2019-01-18] MEDS: THIAMINE 100 MG TAB PO SCH (11:39)
[2019-01-18] MEDS: MULTIVITAMINS, THERA 1 EACH TAB PO SCH (11:39)
--- NOTE | 2019-01-18 13:56 | P.DS ---
Providers Date of admission: 01/14/19 11:29 Expected date of discharge: 01/18/19 Attending physician: Atilio Griffin Consults: 01/13/19 16:34 Consult Physician Stat Consulting Provider: Sony Raza Consult Reason/Comments: Anemia, posterior epistaxis Do you want consulting provider notified?: Yes 01/16/19 16:14 Consult Physician Routine Consulting Provider: Forest Morton Consult Reason/Comments: bleeding tendency, epistaxis Do you want consulting provider notified?: Yes Primary care physician: [facility] Course: Final Diagnoses: Acute epistaxis likely posterior bleed. Status post nasal packing by ENT. Leukocytosis, possible infection, significantly improved. Acute blood loss anemia. Status post multiple transfusions. History of CVA with left-sided weakness Hypertension Hyperlipidemia Anxiety Previous history of smoking DVT prophylaxis with SCDs Relative hypotension Hospital course:Patient is a 73-year-old female with a known history of hypertension, hyperlipidemia and history of CVA last year with residual left- sided weakness usually on received came to the hospital with complaints of. Patient has been havingon and off for several days. Patient did have nosebleed home yesterday and initially presented to [facility] where she had packing of both nostrils and was recommended to follow with ENT if the bleeding recurs. Patient did havebleeding again this morning and was also coughing of blood which made her to come to ER. Patient tried to reach ENT office but was recommended to come to ER. Patient otherwise denied any complaints of trauma. No nausea vomiting or abdominal pain. No headache or dizziness or lightheadedness. Denied any hematemesis or melena. No cough or sputum production. Denied recent upper respiratory infections.No complaints of chest pain or shortness of breath. Patient does take aspirin Plavix for secondary stroke prophylaxis. Evaluated by ENT with nasal packing done. Aspirin and Plavix remain on hold with further DC recommendations as per hematology.Currently no active bleeding noted, status post multiple transfusions. Hemoglobin currently 9.4. Maintained on IV cefazolin. Nasal packing currently in place with final DC recommendations per ENT pending. Significant clinical improvement. Cleared by all consults for discharge. Patient is being discharged to subacute rehab in a stable condition with guarded prognosis. - Exam GENERAL:no acute distress, awake alert and oriented X 3. CHEST EXAMINATION: Lung taylor clear to auscultation and percussion. CARDIAC: Normal S1, S2 with no gallops. No murmurs ABDOMEN: Soft. Bowel sounds normal. No organomegaly. Positive bowel sounds. Neurologically awake, alert, oriented x3 with chronic residual left-sided weakness from prior stroke. The impression and plan of care has been dictated as directed. : I performed a history and examination of this patient, discussed the same with the dictator. I agree with the dictator's note ,documented as a scribe. Any additional findings or plans will be noted. Time taken: 35 minutes Patient Condition at Discharge: Stable Plan - Discharge Summary New Discharge Prescriptions: New Cephalexin [Keflex] 500 mg PO Q8HR #12 cap Acetaminophen Tab [Tylenol] 650 mg PO Q6HR PRN tab PRN Reason: Fever And/ Or Pain Folic Acid 1 mg PO DAILY@1200 tab Multivitamins, Thera [Multivitamin (formulary)] 1 each PO DAILY@1200 tab Pantoprazole [Protonix] 40 mg PO AC-BRKFST tablet. Thiamine [Vitamin B-1] 100 mg PO DAILY@1200 tab Continue Awjcefvk-Cecvt-Cqpmly Ophth [Neosporin Ophth Oint] 1 applic LEFT EYE DAILY Citalopram Hydrobromide [CeleXA] 10 mg PO DAILY Atorvastatin [Lipitor] 20 mg PO DAILY Discontinued amLODIPine [Norvasc] 10 mg PO DAILY Clopidogrel [Plavix] 75 mg PO DAILY Aspirin [Casey Aspirin EC] 81 mg PO Q48H Discharge Medication List Atorvastatin [Lipitor] 20 mg PO DAILY 01/13/19 [History] Citalopram Hydrobromide [CeleXA] 10 mg PO DAILY 01/13/19 [History] Quofropg-Mcyzg-Zivayq Ophth [Neosporin Ophth Oint] 1 applic LEFT EYE DAILY 01/13 [History] Acetaminophen Tab [Tylenol] 650 mg PO Q6HR PRN tab 01/18/19 [Rx] Cephalexin [Keflex] 500 mg PO Q8HR #12 cap 01/18/19 [Rx] Folic Acid 1 mg PO DAILY@1200 tab 01/18/19 [Rx] Multivitamins, Thera [Multivitamin (formulary)] 1 each PO DAILY@1200 tab [Rx] Pantoprazole [Protonix] 40 mg PO AC-BRKFST tablet. 01/18/19 [Rx] Thiamine [Vitamin B-1] 100 mg PO DAILY@1200 tab 01/18/19 [Rx] Follow up Appointment(s)/Referral(s): Norbert Mendenhall MD [STAFF PHYSICIAN] - 1 Week Sony Raza DO [Doctor of Osteopathic Medicine] - 01/20/19 1:30 pm Bala Garcia MD [Primary Care Provider] - 01/20/19 3:00 pm Patient Instructions/Handouts: Nosebleed (ED) Activity/Diet/Wound Care/Special Instructions: [facility] Patient to adhere to previously discussed treatment plan and will take medication(s) as directed. Patient to return to ED if symptoms do not improve. Please call ENT specialist today to set up appointment. Please tell them that you were diagnosed with a posterior epistaxis at [facility] yesterday and were discharged with both nostrils packed. Please tell them that you are having some continued bleeding and need to be seen tomorrow. Please return to ED if new signs or symptoms develop or if condition worsens in anyway Diet regular Activity: As tolerated CBC, BMP in 3 days resume Plavix, asa as per Hematology Final DC recommendations/nostril packing as per ENT Discharge Disposition: TRANSF[facility] TO [facility]
[2019-01-18 14:30] VITALS: BP 103/56; PULSE 78; TEMP 97.9
[2019-01-18] MEDS: ALPRAZolam 0.25 MG TAB PO PRN (15:44)
[2019-01-18] MEDS: SODIUM CHLORIDE 0.9% 1,000 ML IV SCH (16:21)
== END 2019-01-18 17:21 | DRG 151 ==
LOC: EC 12:48 → 6PED 16:26 → 4MS4W 20:46 → 3SCARD 23:07 → OBSVTOIN 01-14 11:29 → 4MS4W 01-14 21:42
PROVIDERS: ADMIT Internal Medicine; ATTEND Internal Medicine
PROC: 30233N1 Transfusion of Nonautologous Red Blood Cells into Peripheral Vein, Percutaneous Approach (ICD-10-PCS; principal; 2019-01-13)
PROC: 2Y41X5Z Packing of Nasal Region using Packing Material (ICD-10-PCS; 2019-01-13)
DX: R04.0 Epistaxis (principal); D62 Acute posthemorrhagic anemia; I69.354 Hemiplegia and hemiparesis following cerebral infarction affecting left non-dominant side; I95.9 Hypotension, unspecified; N28.1 Cyst of kidney, acquired; J01.90 Acute sinusitis, unspecified; I10 Essential (primary) hypertension; M54.9 Dorsalgia, unspecified; F41.9 Anxiety disorder, unspecified; E78.5 Hyperlipidemia, unspecified; Z79.02 Long term (current) use of antithrombotics/antiplatelets; Z79.82 Long term (current) use of aspirin; Z87.891 Personal history of nicotine dependence; Z79.899 Other long term (current) drug therapy
CPT/HCPCS: 36415; 71045; 74176; 80048; 80076; 81001; 82728; 83540; 83550; 83615; 85025; 85610; 85730; 86850; 86900; 86901; 86920; 87040; 99284

== ENCOUNTER 2020-10-01 12:23 | Inpatient (IN) | payer MEDICARE, BC ==
--- NOTE | 2020-10-01 12:42 | ED ---
General Adult HPI - General Stated complaint: L hip fracture Time Seen by Provider: 10/01/20 12:25 Source: patient, EMS, RN notes reviewed Mode of arrival: EMS Limitations: physical limitation - History of Present Illness Initial comments: This a 74-year-old female presents emergency Department as a transfer from [facility] with chief complaint of fall, left hip fracture. Patient found to have a left IT fracture. Patient does take Plavix and aspirin no head injury no loss conscious. Patient does have some mild left sided weakness which is chronic from prior CVA. Patient has no chest pain no shortness of breath. Patient has some underlying baseline confusion per report. Patient denies any other complaints pain is controlled after pain medications. Patient currently on antibiotics for extremity cellulitis. - Related Data Home Medications Medication Instructions Recorded Confirmed Atorvastatin [Lipitor] 20 mg PO DAILY 01/13/19 01/13/19 Citalopram Hydrobromide [CeleXA] 10 mg PO DAILY 01/13/19 01/13/19 Gfhvooqz-Whtzx-Duwayz Ophth 1 applic LEFT EYE DAILY 01/13/19 01/13/19 [Neosporin Ophth Oint] Previous Rx's Medication Instructions Recorded Acetaminophen Tab [Tylenol] 650 mg PO Q6HR PRN tab 01/18/19 Cephalexin [Keflex] 500 mg PO Q8HR #12 cap 01/18/19 Folic Acid 1 mg PO DAILY@1200 tab 01/18/19 Multivitamins, Thera [Multivitamin 1 each PO DAILY@1200 tab 01/18/19 (formulary)] Pantoprazole [Protonix] 40 mg PO AC-BRKFST tablet. 01/18/19 Thiamine [Vitamin B-1] 100 mg PO DAILY@1200 tab 01/18/19 Allergies Allergy/AdvReac Type Severity Reaction Status Date / Time No Known Allergies Allergy Verified 10/01/20 12:32 Review of Systems ROS Statement: Those systems with pertinent positive or pertinent negative responses have been documented in the HPI. ROS Other: All systems not noted in ROS Statement are negative. Past Medical History Past Medical History: Hyperlipidemia, Hypertension Additional Past Medical History / Comment(s): CVA LAST YEAR, L SIDED WEAKNESS. NORMALLY USE A WHEELCHAIR AT HELPS HER TO PIVOT History of Any Multi-Drug Resistant Organisms: None Reported Past Surgical History: No Surgical Hx Reported Additional Past Anesthesia/Blood Transfusion Reaction / Comment(s): NEVER HAD A BLOOD TRANSFUSION Past Psychological History: Anxiety Smoking Status: Never smoker Past Alcohol Use History: None Reported Past Drug Use History: None Reported - Past Family History Mother Family Medical History: No Reported History Father Family Medical History: No Reported History General Exam Limitations: physical limitation General appearance: alert, in no apparent distress Neck exam: Present: normal inspection, full ROM. Absent: tenderness, meningismus, lymphadenopathy Respiratory exam: Present: normal lung sounds bilaterally. Absent: respiratory distress, wheezes, rales, rhonchi, stridor Cardiovascular Exam: Present: regular rate, normal rhythm, normal heart sounds. Absent: systolic murmur, diastolic murmur, rubs, gallop, clicks Extremities exam: Present: other (Pulses are equal bilaterally lower extremities, there is pain with any movement of the left hip, mild erythema lower extremity) Neurological exam: Present: alert, reflexes normal. Absent: oriented X3, motor sensory deficit Skin exam: Present: warm, dry, intact, normal color, rash (Candidiasis infection on the pannus) Course Vital Signs 10/01/20 12:32 Temperature 98 F Pulse Rate 80 Respiratory 18 Rate Blood Pressure 108/54 O2 Sat by Pulse 96 Oximetry Disposition Clinical Impression: Fall, Closed intertrochanteric fracture of left femur, Candidiasis of skin Disposition: ADMITTED IP TO THIS HOSP Condition: Fair Referrals: Yuri Hensley MD [Primary Care Provider] - 1-2 days Time of Disposition: 12:42
[2020-10-01] MEDS ORDERED: NALOXONE 0.4 MG/ML 1 ML VIAL IV PRN (12:43)
[2020-10-01] MEDS ORDERED: MORPHINE SULFATE 4 MG/ML SYRINGE IVP PRN (12:45)
[2020-10-01] MEDS ORDERED: ONDANSETRON 4 MG/2 ML VIAL IVP PRN (12:46)
[2020-10-01 13:41] LABS: Anisocytosis Slight; Basophils % (A) 1 %; Eosinophils % (A) 0 %; HCT 32.9 % (34.0-46.0); Hypochromasia Slight; Lymphocytes # (A) 0.7 k/uL (1.0-4.8); Lymphocytes % (A) 10 %; MCH 24.2 pg (25.0-35.0); MCHC 30.4 g/dL (31.0-37.0); MCV 79.6 fL (80.0-100.0); Mean Platelet Volume 7.3; Microcytosis Slight; Monocytes # (A) 0.7 k/uL (0-1.0); Monocytes % (A) 10 %; Neutrophils # (A) 5.6 k/uL (1.3-7.7); Neutrophils % (A) 77 %; Platelet Count 375 k/uL (150-450); RBC 4.13 m/uL (3.80-5.40); RDW 16.5 % (11.5-15.5); WBC 7.3 k/uL (3.8-10.6)
[2020-10-01 13:50] LABS: Albumin 2.9 g/dL (3.5-5.0); Calcium 8.1 mg/dL (8.4-10.2); Total Bilirubin 0.5 mg/dL (0.2-1.3); Total Protein 6.4 g/dL (6.3-8.2)
[2020-10-01 13:54] LABS: INR 1.1 (<1.2); Prothrombin Time 10.9 sec (9.0-12.0)
[2020-10-01] MEDS ORDERED: HYDROcodone/APAP 5-325MG 1 EACH TAB PO PRN (17:31)
[2020-10-01] MEDS: HYDROmorphone 0.5 MG/0.5 ML SYRINGE IVP PRN ×2 (18:08→22:19)
[2020-10-01 18:10] LABS: Appearance,Urine Clear (Clear); Bilirubin,Urine Negative (Negative); Blood,Urine Negative (Negative); Color,Urine Yellow; Glucose,Urine (UA) Negative (Negative); Ketones,Urine 1+ (Negative); Leukocyte Esterase,Urine Negative (Negative); Nitrite,Urine Negative (Negative); PH, Urine 6.5 (5.0-8.0); Protein,Urine Trace (Negative); Specific Gravity,Urine 1.025 (1.001-1.035)
[2020-10-01] MEDS: SODIUM CHLORIDE 0.9% 1,000 ML IV SCH (19:00)
--- NOTE | 2020-10-01 22:02 | P.CONS ---
History of Present Illness - Reason for Consult Consult date: 10/01/20 Medical management Requesting physician: Tarik Aranda - Chief Complaint Hip fracture - History of Present Illness History of presenting complaint: This is a pleasant 74-year-old patient off visiting physician. Chronic stable medical conditions include hypertension, hyperlipidemia with a stroke last year. That has left the patient becomes left side. She is able to move her left arm and little bit not her leg. Has a baseline dysarthria. Able to swallow. Has a wheelchair and a walker at home. Patient had a mechanical fall today with a left hip fracture. Initially transferred to [facility] where she was transferred here. Has a left IT fracture. No chest pain or palpitation. No cardiac symptoms. Review of systems: GEN.: None EYES: None HEENT: None NECK: None RESPIRATORY: None CARDIOVASCULAR: None GASTROINTESTINAL: None GENITOURINARY: None MUSCULOSKELETAL: Joint pains LYMPHATICS: None HEMATOLOGICAL: None PSYCHIATRY: None NEUROLOGICAL: Left-sided weakness especially the leg, baseline dysarthria Past medical history to include: Hypertension, hyperlipidemia, stroke with left-sided weakness, uses a wheelchair and a walker, anxiety Social history: Uses a wheelchair and a walker. Smoked a pack a day for close to 60 years, stopped about 2 years ago. No alcohol. Physical examination: VITAL SIGNS: 98.3, 6095, 20, 131/46, 95% room air GENERAL: BMI 45.7, laying in bed, awake. EYES: Pupils equal. Conjunctiva normal. HEENT: External appearance of nose and ears normal, oral cavity grossly normal. NECK: JVD not raised; masses not palpable. HEART: First and second heart sounds are normal; no edema. LUNGS: Respiratory rate normal; clear to auscultation. ABDOMEN: Soft, nontender, liver spleen not palpable, no masses palpable. PSYCH: Alert and oriented x3; mood and affect normal. NEUROLOGICAL: Mild dysarthria. Weakness of the left side of the face. Increased palpebral fissure. Part of the left arm is 4/5. Power of the left leg is 1/5. MUSCULAR skeletal: Left leg is shortened and externally rotated LYMPHATICS: No lymph nodes palpable in the axilla and neck INVESTIGATIONS, reviewed in the clinical context: White count 7.3 hemoglobin 10 platelets 375 potassium 4 creatinine 0.78 UA negative for leukoesterase X-ray of the left hip reported to have IT fracture Assessment: -Left femur IT fracture secondary to fall -Essential hypertension -Hyperlipidemia -Baseline dysarthria from prior stroke -Chronic gait dysfunction uses a walker and revealed just secondary to stroke -Left hemiparesis sitting to prior stroke -Depression and anxiety not otherwise specified Plan: Patient's home medications resumed. Hold off Plavix. There is increased risk of bleeding until the half life of Plavix.. Depending on the inseam trimming machine operator and the technique used patient may still proceed with surgery given that'll be risk of increased bleeding. Cardiovascular risk assessment-patient is a moderate risk for surgery given her comorbidities and very limited excess tolerance.. Patient is no active cardiac symptoms. Does not need any further workup. We'll get a baseline EKG. Care was discussed with the patient. Questions were answered. Thank you Dr. Bravo Past Medical History Past Medical History: Hyperlipidemia, Hypertension Additional Past Medical History / Comment(s): CVA LAST YEAR, L SIDED WEAKNESS. NORMALLY USE A WHEELCHAIR AND WALKER AT HOME. HELPS HER. History of Any Multi-Drug Resistant Organisms: None Reported Past Surgical History: No Surgical Hx Reported Additional Past Anesthesia/Blood Transfusion Reaction / Comm: NEVER HAD A BLOOD TRANSFUSION Past Psychological History: Anxiety Smoking Status: Former smoker Past Alcohol Use History: None Reported Past Drug Use History: None Reported Additional Drug Use History / Comment(s): QUIT SMOKING 2017 - Past Family History Mother Family Medical History: Myocardial Infarction ([place]) Father Family Medical History: No Reported History Medications and Allergies Home Medications Medication Instructions Recorded Confirmed Type Atorvastatin [Lipitor] 20 mg PO DAILY 01/13/19 10/01/20 History Citalopram Hydrobromide [CeleXA] 20 mg PO DAILY 01/13/19 10/01/20 History Clopidogrel [Plavix] 75 mg PO DAILY 10/01/20 10/01/20 History Sulfamethox-Tmp 800-160Mg [Bactrim 1 tab PO Q12HR 10/01/20 10/01/20 History DS 800-160 mg] Allergies Allergy/AdvReac Type Severity Reaction Status Date / Time No Known Allergies Allergy Verified 10/01/20 13:06 Physical Exam Vitals: Vital Signs Temp Pulse Pulse Resp BP BP Pulse Ox 10/01/20 19:00 98.3 F 95 20 131/46 95 10/01/20 15:20 97.9 F 88 16 165/66 96 10/01/20 14:17 97.2 F L 98 18 101/73 97 10/01/20 12:32 98 F 80 18 108/54 96 Intake and Output 10/01/20 10/01/20 10/01/20 06:59 14:59 22:59 Intake Total 296 Output Total 260 Balance 36 Intake: Oral 296 Output: Urine 260 Uretheral (Noriega) 260 Other: Voiding Method Bedpan Weight 113.398 kg 113.398 kg Results CBC & Chem 7: 10/01/20 13:26 10/01/20 13:26 Labs: Abnormal Lab Results - Last 24 Hours (Table) 10/01/20 10/01/20 10/01/20 Range/Units 13:26 13:26 17:58 Hgb 10.0 L (11.4-16.0) gm/dL Hct 32.9 L (34.0-46.0) % MCV 79.6 L (80.0-100.0) fL MCH 24.2 L (25.0-35.0) pg MCHC 30.4 L (31.0-37.0) g/dL RDW 16.5 H (11.5-15.5) % Lymphocytes # 0.7 L (1.0-4.8) k/uL Sodium 136 L (137-145) mmol/L Glucose 114 H (74-99) mg/dL Calcium 8.1 L (8.4-10.2) mg/dL Albumin 2.9 L (3.5-5.0) g/dL Urine Protein Trace H (Negative) Urine Ketones 1+ H (Negative)
--- NOTE | 2020-10-01 22:39 | XR ---
EXAMINATION TYPE: XR chest 1V portable DATE OF EXAM: 10/01/2020 COMPARISON: 01/15/2019 HISTORY: Preop TECHNIQUE: Single view FINDINGS: There is a 7 x 5 cm area of masslike infiltrate in the left lower lobe. This appears increa sed compared to old exam. Right lung is clear. There is no heart failure. Thoracic aorta is atheromat ous. There is no pleural effusion. Bony thorax appears intact. IMPRESSION: Increasing masslike infiltrate left lower lobe compared to old exam. Follow-up recommende d.
[2020-10-01] MEDS: ENOXAPARIN 40 MG/0.4 ML SYRINGE SQ SCH (23:00)
[2020-10-02] MEDS: diazePAM 5 MG TAB PO PRN (00:02)
[2020-10-02] MEDS: HYDROmorphone 0.5 MG/0.5 ML SYRINGE IVP PRN ×3 (01:33→12:17)
[2020-10-02] MEDS: ENOXAPARIN 40 MG/0.4 ML SYRINGE SQ SCH (07:38)
[2020-10-02] MEDS: CITALOPRAM HYDROBROMIDE 20 MG TAB PO SCH (07:38)
[2020-10-02] MEDS: ATORVASTATIN 20 MG TAB PO SCH (07:38)
[2020-10-02] MEDS: SODIUM CHLORIDE 0.9% 1,000 ML IV SCH (07:47)
--- NOTE | 2020-10-02 08:59 | P.HPOR ---
<Christina Guadalupe - Last Filed: 10/02/20 08:49> History of Present Illness H&P Date: 10/02/20 Chief Complaint: Left hip fracture The patient is a 74-year-old female with a history of CVA with left-sided weakness, hyperlipidemia and hypertension who was transferred from [facility] after sustaining a fall at home yesterday. She states that she was getting out of a chair to go to the bathroom, her good leg gave out and she fell. She was seen in the ER at [facility] where x-rays were taken and a left intertrochanteric fracture was found. The patient is on Plavix and aspirin. She states she also hit her head during the fall. According to the ER note, the patient was on recent antibiotics for lower extremity cellulitis. No antibiotics are currently ordered at this time. The patient was admitted to orthopedics for further surgical intervention to the left hip. The patient has been cleared by internal medicine. This morning, the patient states she is comfortable while lying in bed at this time. The patient denies nausea, vomiting, abdominal pain, shortness of breath, and chest pain. Review of Systems Constitutional: Denies chills, Denies fatigue, Denies fever Cardiovascular: Denies chest pain, Denies shortness of breath Respiratory: Denies cough Gastrointestinal: Denies diarrhea, Denies nausea, Denies vomiting Musculoskeletal: left: hip pain, hip stiffness, hip swelling Integumentary: Reports as per HPI (chronic lower leg cellulitis) Past Medical History Past Medical History: Hyperlipidemia, Hypertension Additional Past Medical History / Comment(s): CVA LAST YEAR, L SIDED WEAKNESS. NORMALLY USE A WHEELCHAIR AND WALKER AT HOME. HELPS HER. History of Any Multi-Drug Resistant Organisms: None Reported Past Surgical History: No Surgical Hx Reported Additional Past Anesthesia/Blood Transfusion Reaction / Comment(s): NEVER HAD A BLOOD TRANSFUSION Past Psychological History: Anxiety Smoking Status: Former smoker Past Alcohol Use History: None Reported Past Drug Use History: None Reported Additional Drug Use History / Comment(s): QUIT SMOKING 2018 - Past Family History Mother Family Medical History: Myocardial Infarction ([place]) Father Family Medical History: No Reported History Medications and Allergies Home Medications Medication Instructions Recorded Confirmed Type Atorvastatin [Lipitor] 20 mg PO DAILY 01/13/19 10/01/20 History Citalopram Hydrobromide [CeleXA] 20 mg PO DAILY 01/13/19 10/01/20 History Clopidogrel [Plavix] 75 mg PO DAILY 10/01/20 10/01/20 History Sulfamethox-Tmp 800-160Mg [Bactrim 1 tab PO Q12HR 10/01/20 10/01/20 History DS 800-160 mg] Allergies Allergy/AdvReac Type Severity Reaction Status Date / Time No Known Allergies Allergy Verified 10/01/20 13:06 Physical Examination The patient is a 74 year old female that is no acute distress. She is alert and oriented x3. The patient's head is normocephalic and atraumatic. Exam of the cervical spine reveals no pain upon palpation or range of motion. Exam of the bilateral upper extremities reveal no obvious deformities or pain upon range of motion. Exam of the right lower extremity reveals no pain upon palpation. Exam of the left lower extremity reveals a mildly externally rotated and shortened leg. No pain upon palpation to the lateral hip. There is pain upon logrolling and any range of motion of the leg. Bilateral calves are soft and nontender. Patient has good foot and ankle motion bilaterally. Neurological and circulatory status is intact. Results - Labs Labs: Abnormal Lab Results - Last 24 Hours (Table) 10/01/20 10/01/20 10/01/20 Range/Units 13:26 13:26 17:58 Hgb 10.0 L (11.4-16.0) gm/dL Hct 32.9 L (34.0-46.0) % MCV 79.6 L (80.0-100.0) fL MCH 24.2 L (25.0-35.0) pg MCHC 30.4 L (31.0-37.0) g/dL RDW 16.5 H (11.5-15.5) % Lymphocytes # 0.7 L (1.0-4.8) k/uL Sodium 136 L (137-145) mmol/L Glucose 114 H (74-99) mg/dL Calcium 8.1 L (8.4-10.2) mg/dL Albumin 2.9 L (3.5-5.0) g/dL Urine Protein Trace H (Negative) Urine Ketones 1+ H (Negative) H & H 10/01/20 Range/Units 13:26 Hgb 10.0 L (11.4-16.0) gm/dL Hct 32.9 L (34.0-46.0) % Coagulation 10/01/20 Range/Units 13: INR 1.1 (<1.2) Result Diagrams: 10/01/20 13:26 10/01/20 13:26 - Diagnostic results Hip x-ray: image reviewed (Outside films of the left hip reveal a intertrochanteric femur fracture.) Assessment and Plan (1) CVA (cerebrovascular accident) Current Visit: Yes Status: Acute Code(s): I63.9 - CEREBRAL INFARCTION, UNSPECIFIED SNOMED Code(s): 769498167 (2) Hyperlipidemia Current Visit: Yes Status: Acute Code(s): E78.5 - HYPERLIPIDEMIA, UNSPECIFIE D SNOMED Code(s): 91414939 (3) Hypertension Current Visit: Yes Status: Acute Code(s): I10 - ESSENTIAL (PRIMARY) HYPERTENSION SNOMED Code(s): 60153375 (4) Closed intertrochanteric fracture of left femur Current Visit: Yes Status: Acute Code(s): S72.142A - DISPLACED INTERTROCHANTERIC FRACTURE OF LEFT FEMUR, INIT SNOMED Code(s): 03220802 (5) Fall Current Visit: Yes Status: Acute Code(s): W19.XXXA - UNSPECIFIED FALL, INITIAL ENCOUNTER SNOMED Code(s): 1152411 Plan: The clinical and x-ray findings were discussed with the patient. The case was discussed at length with Dr. Aranda. Treatment options were discussed and surgical intervention is recommended. We discussed the surgical plan as well as the expected postoperative course. Risks and benefits were reviewed including (but not limited to) the risks of infection, bleeding, blood clots, delayed or nonunion, anesthesia-related complications and possible need for additional surgery. Questions were invited and answered. The patient expressed understanding and wishes to proceed with surgery. The patient will be kept on bedrest. Continue PRN pain management. NPO today. She is scheduled for a closed reduction with insertion of IM nail of the left hip later this afternoon. Pre- op clearance from internal medicine has been completed. <Tarik Aranda - Last Filed: 10/02/20 17:20> Results - Labs Labs: Abnormal Lab Results - Last 24 Hours (Table) 10/01/20 Range/Units 17:58 Urine Protein Trace H (Negative) Urine Ketones 1+ H (Negative) H & H 10/01/20 Range/Units 13:26 Hgb 10.0 L (11.4-16.0) gm/dL Hct 32.9 L (34.0-46.0) % Coagulation 10/01/20 Range/Units 13:26 INR 1.1 (<1.2) Result Diagrams: 10/01/20 13:26 10/01/20 13:26 Assessment and Plan Plan: Discussed with NUNO Guadalupe and agree with above (amendments/correction noted below). The patient was also seen and examined by me with her family at the bedside. S: The patient states that this was just a simple fall. Denies antecedent hip pain, lightheadedness or dizziness. Her left leg has residual weakness from a stroke she sustained several years ago. They do not know the etiology of the stroke. She denies other associated injuries related to this fall. Pain is localized to left hip. It has not been well-controlled. O: Musculoskeletal: The left lower extremity rests in a shortened and externally rotated position. Tenderness to palpation over the lateral hip. No visible ulcerations, abrasions or ecchymosis around the hip. Marked pain with logroll. The calf is soft and nontender. Intact active dorsiflexion and plantarflexion. Light touch sensation is subjectively intact throughout the lower extremity and symmetric to the contralateral side. Foot is warm dry and well-perfused. Note is made of mild bilateral lower extremity edema and hyperemia, focally on the distal lateral legs. Imaging: CT scan of the left lower extremity from [facility] dated 10/01/20 was reviewed and interpreted from an orthopedic standpoint: Mildly comminuted left intertrochanteric femur fracture with marked varus angulation (90). There is a displaced lesser trochanter fragment. No appreciable fracture extension into the subtrochanteric region. A: 1. Displaced left intertrochanteric femur fracture status post fall 2. History of CVA with residual left-sided weakness. 3. Morbid obesity P: I discussed the diagnosis and radiographic findings with the patient and her family. We reviewed the pertinent anatomy and pathophysiology of the fracture. We discussed treatment options and I explained the rationale behind surgical intervention. I recommended operative treatment in the form of closed reduction and cephalomedullary nailing. We discussed the surgical plan as well as the expected postoperative course. Risks and benefits were reviewed including (but not limited to) the risks of infection, bleeding, blood clots, delayed or nonunion, anesthesia related complications and possible need for additional s urgery. Questions were invited and answered. The patient expressed understanding and wishes to proceed with surgery. The operative side/site was confirmed and marked. Thank you for allowing me to participate in the care of this patient. Tarik Aranda D.O. [facility]
[2020-10-02] MEDS ORDERED: IV FLUID CONTINUATION 400 ML IV ONE (15:21)
[2020-10-02] MEDS ORDERED: LACTATED RINGERS 1,000 ML IV ONE ×2 (17:13→20:30)
[2020-10-02] MEDS ORDERED: LIDOCAINE 1% INJ 10MG/ML (20 ML MDV) ONE (17:13)
[2020-10-02] MEDS ORDERED: NEOSTIGMINE 1 MG/ML 10 ML VIAL ONE (17:13)
[2020-10-02] MEDS ORDERED: GLYCOPYRROLATE 0.2 MG/ML 2 ML VIAL ONE (17:13)
[2020-10-02] MEDS ORDERED: LABETALOL 5 MG/ML VIAL MDV ONE (17:13)
[2020-10-02] MEDS ORDERED: ONDANSETRON 4 MG/2 ML VIAL ONE (17:13)
[2020-10-02] MEDS ORDERED: MIDAZOLAM 2 MG/2 ML VIAL ONE (17:13)
[2020-10-02] MEDS ORDERED: fentaNYL (PF) 50 MCG/ML 2 ML AMP ONE (17:13)
[2020-10-02] MEDS ORDERED: PROPOFOL 10 MG/ML 20 ML VIAL IV ONE (17:13)
[2020-10-02] MEDS ORDERED: PHENYLEPHRINE-0.9% NACL SYG 1 MG/10 ML SYRINGE ONE (17:13)
[2020-10-02] MEDS ORDERED: ROCURONIUM 10 MG/ML (10 ML VIAL) IV ONE (17:13)
[2020-10-02] MEDS ORDERED: SODIUM CHLORIDE 0.9% 150 ML with ceFAZolin 3,000 MG IV ONE ×2 (17:20)
--- NOTE | 2020-10-02 19:54 | P.PN ---
Progress Note - Text Progress Note Date: 10/02/20 - Chief Complaint Hip fracture History of presenting complaint: This is a pleasant 74-year-old patient off visiting physician. Chronic stable medical conditions include hypertension, hyperlipidemia with a stroke last year. That has left the patient becomes left side. She is able to move her left arm and little bit not her leg. Has a baseline dysarthria. Able to swallow. Has a wheelchair and a walker at home. Patient had a mechanical fall today with a left hip fracture. Initially transferred to [facility] where she was transferred here. Has a left IT fracture. No chest pain or palpitation. No cardiac symptoms. Today-laying in bed. Awake. Pending surgery. Some pain present. Breathing stable. Review of systems: Was done for constitutional, cardiovascular, GI, pulmonary. relevant finding as above Current medications reviewed in today's electronic records Physical examination: VITAL SIGNS: 98.6, 99, 18, 127/71, 96% room air GENERAL: BMI 45.7, laying in bed, awake. EYES: Pupils equal. Conjunctiva normal. NECK: JVD not raised; masses not palpable. HEART: First and second heart sounds are normal; no edema. LUNGS: Respiratory rate normal; clear to auscultation. ABDOMEN: Soft, nontender, liver spleen not palpable, no masses palpable. PSYCH: Alert and oriented x3; mood and affect normal. NEUROLOGICAL: Mild dysarthria. Weakness of the left side of the face. Increased palpebral fissure. Part of the left arm is 4/5. Power of the left leg is 1/5. MUSCULAR skeletal: Left leg is shortened and externally rotated INVESTIGATIONS, reviewed in the clinical context: White count 7.3 hemoglobin 10 platelets 375 potassium 4 creatinine 0.78 UA negative for leukoesterase X-ray of the left hip reported to have IT fracture Assessment: -Left femur IT fracture secondary to fall-pending surgery this afternoon -Essential hypertension -Hyperlipidemia -Baseline dysarthria from prior stroke -Chronic gait dysfunction uses a walker and revealed just secondary to stroke -Left hemiparesis sitting to prior stroke -Depression and anxiety not otherwise specified Plan: Continue current medication treatment plan. Patient's pending surgery this afternoon. Thank you Dr. Bravo
[2020-10-02 20:55] LABS: Anisocytosis Slight; Basophils % (A) 0 %; Eosinophils # (A) 0.1 k/uL (0-0.7); Eosinophils % (A) 1 %; HCT 29.6 % (34.0-46.0); HGB 9.2 gm/dL (11.4-16.0); Hypochromasia Moderate; Lymphocytes # (A) 0.9 k/uL (1.0-4.8); Lymphocytes % (A) 7 %; MCH 25.1 pg (25.0-35.0); MCHC 31.1 g/dL (31.0-37.0); MCV 80.7 fL (80.0-100.0); Mean Platelet Volume 7.2; Monocytes # (A) 0.7 k/uL (0-1.0); Monocytes % (A) 5 %; Neutrophils # (A) 11.9 k/uL (1.3-7.7); Neutrophils % (A) 87 %; Platelet Count 341 k/uL (150-450); RBC 3.66 m/uL (3.80-5.40); RDW 16.7 % (11.5-15.5); WBC 13.7 k/uL (3.8-10.6)
[2020-10-02] MEDS ORDERED: SODIUM CHLORIDE 0.9% 1,000 ML IV ONE ×2 (21:30)
[2020-10-02] MEDS ORDERED: LIDOCAINE 1% INJ 10MG/ML (20 ML MDV) SQ ONE (22:25)
[2020-10-02] MEDS ORDERED: LIDOCAINE 1%-EPI 1:100,000 20 ML VIAL SQ ONE (22:25)
[2020-10-02] MEDS ORDERED: HYDROmorphone 0.5 MG/0.5 ML SYRINGE IVP ONE (22:50)
[2020-10-02] MEDS ORDERED: NALOXONE 0.4 MG/ML 1 ML VIAL IV PRN (22:53)
--- NOTE | 2020-10-02 22:53 | P.OP ---
Date of Procedure: 10/02/20 Preoperative Diagnosis: Left intertrochanteric femur fracture Postoperative Diagnosis: Left intertrochanteric femur fracture - reverse oblique Procedure(s) Performed: Open reduction and internal fixation of left reverse oblique intertrochanteric femur fracture Implants: Synthes 12 mm x 380 mm long trochanteric femoral nail with a 85 mm lag screw and three 5.0 mm distal locking screws Anesthesia: GETA Surgeon: Tarik Aranda Inspector And Mender #1: Wayne Cole Estimated Blood Loss (ml): 800 Condition: stable Disposition: PACU
[2020-10-02 23:00] LABS: Anisocytosis Slight; HCT 34.2 % (34.0-46.0); HGB 10.5 gm/dL (11.4-16.0); Hypochromasia Moderate; MCH 25.5 pg (25.0-35.0); MCHC 30.8 g/dL (31.0-37.0); MCV 82.8 fL (80.0-100.0); Mean Platelet Volume 7.2; Platelet Count 359 k/uL (150-450); RBC 4.13 m/uL (3.80-5.40); RDW 17.3 % (11.5-15.5); WBC 18.8 k/uL (3.8-10.6)
[2020-10-03] MEDS: SODIUM CHLORIDE 0.9% 1,000 ML IV SCH ×3 (02:02→23:51)
[2020-10-03] MEDS: HYDROmorphone 0.5 MG/0.5 ML SYRINGE IVP PRN (03:46)
[2020-10-03 07:03] LABS: Anisocytosis Slight; Basophils % (A) 0 %; Eosinophils % (A) 0 %; HCT 33.3 % (34.0-46.0); HGB 9.9 gm/dL (11.4-16.0); Hypochromasia Marked; Lymphocytes # (A) 1.1 k/uL (1.0-4.8); Lymphocytes % (A) 6 %; MCH 25.2 pg (25.0-35.0); MCHC 29.9 g/dL (31.0-37.0); MCV 84.3 fL (80.0-100.0); Mean Platelet Volume 7.7; Monocytes % (A) 5 %; Neutrophils # (A) 16.6 k/uL (1.3-7.7); Neutrophils % (A) 88 %; Platelet Count 372 k/uL (150-450); RBC 3.95 m/uL (3.80-5.40); RDW 17.3 % (11.5-15.5); WBC 18.9 k/uL (3.8-10.6)
--- NOTE | 2020-10-03 07:53 | FL ---
EXAMINATION TYPE: FL guidance operating room, XR femur LT DATE OF EXAM: 10/02/2020 CLINICAL HISTORY: Left femur fracture. TECHNIQUE: Fluoroscopy. Left femur one view. COMPARISON: None. FINDINGS: Fluoroscopic guidance was provided during open reduction internal fixation procedure perfo rmed by Dr. Aranda. A total of 7 minutes 53 seconds of fluoroscopic time was utilized during the procedure and 5 spot images was acquired. Intraoperative images obtained show large intramedullary aldair with femoral neck fixating screw through the intertrochanteric fracture left proximal femur, there are 3 distal transverse fixating screws di stal metadiaphysis level noted. Satisfactory alignment seen on intraoperative images obtained. IMPRESSION: As Above.
--- NOTE | 2020-10-03 08:04 | XR ---
Left femur HISTORY: Intramedullary aldair placement, fracture Frontal view of the left femur on [address] scan 10/01/2020 Patient shows intramedullary aldair placement for comminuted proximal left femoral fracture. There are o verlying crow. Side screw shows proximity to the femoral head cortex. Osteoarthritic change noted in the left knee incidentally. There is lucency in the soft tissues. There is anatomic alignment. IMPRESSION: Orthopedic follow-up as described.
--- NOTE | 2020-10-03 08:50 | P.PN ---
Subjective Progress Note Date: 10/03/20 Principal diagnosis: Status post left hip IT nail This is a 74 year-old female post left hip long IT nail. This is post-op day 1. The patient was evaluated at the bedside today. The patient denies nausea, vomiting, abdominal pain, shortness of breath, and chest pain this morning. She states her pain is controlled at this time. The patient was about to work with physical therapy this morning. Objective - Vital Signs Vital signs: Vital Signs Temp 97.1 F L 10/02/20 22:39 Pulse 69 10/03/20 04:09 Resp 14 10/02/20 23:35 BP 125/60 10/03/20 04:09 Pulse Ox 95 10/02/20 23:35 Intake & Output 10/02/20 10/03/20 10/03/20 18:59 06:59 18:59 Intake Total 1990 1010 Output Total 500 1650 Balance 1490 -640 Intake: IV 1530 700 Intake, IV Titration 460 Amount Sodium Chloride 0.9% 1, 460 000 ml @ 75 mls/hr IV . [id number] [facility] Rx#:[id number] Blood Product 310 Rc As-1 Unit 310 [id number] Output: Urine 500 850 Estimated Blood Loss 800 Other: Voiding Method Bedpan Indwelling Catheter Indwelling Catheter - Exam The patient does not appear in acute distress. Alert and orientated x3. Dressing is clean dry and intact. Bilateral calves are soft but very tender. Minimal foot and ankle motion without difficulty. Sensation and circulatory status is intact. - Labs CBC & Chem 7: 10/03/20 06:11 10/03/20 06:11 Labs: Abnormal Lab Results - Last 24 Hours (Table) 10/01/20 10/02/20 10/02/20 Range/Units 13:26 20:45 22:45 WBC 13.7 H 18.8 H (3.8-10.6) k/uL RBC 3.66 L (3.80-5.40) m/uL Hgb 9.2 L 10.5 L (11.4-16.0) gm/dL Hct 29.6 L (34.0-46.0) % MCHC 30.8 L (31.0-37.0) g/dL RDW 16.7 H 17.3 H (11.5-15.5) % Neutrophils # 11.9 H (1.3-7.7) k/uL Lymphocytes # 0.9 L (1.0-4.8) k/uL Crossmatch See Detail 10/03/20 Range/Units 06:11 WBC 18.9 H (3.8-10.6) k/uL RBC (3.80-5.40) m/uL Hgb 9.9 L (11.4-16.0) gm/dL Hct 33.3 L (34.0-46.0) % MCHC 29.9 L (31.0-37.0) g/dL RDW 17.3 H (11.5-15.5) % Neutrophils # 16.6 H (1.3-7.7) k/uL Lymphocytes # (1.0-4.8) k/uL Crossmatch Assessment and Plan (1) CVA (cerebrovascular accident) Current Visit: Yes Status: Acute Code(s): I63.9 - CEREBRAL INFARCTION, UNSP ECIFIED SNOMED Code(s): 179417550 (2) Hyperlipidemia Current Visit: Yes Status: Acute Code(s): E78.5 - HYPERLIPIDEMIA, UNSPECIFIED SNOMED Code(s): 00280564 (3) Hypertension Current Visit: Yes Status: Acute Code(s): I10 - ESSENTIAL (PRIMARY) HYPERTENSION SNOMED Code(s): 07633707 (4) Closed intertrochanteric fracture of left femur Current Visit: Yes Status: Acute Code(s): S72.142A - DISPLACED INTERTROCHANTERIC FRACTURE OF LEFT FEMUR, INIT SNOMED Code(s): 31252642 (5) Fall Current Visit: Yes Status: Acute Code(s): W19.XXXA - UNSPECIFIED FALL, INITIAL ENCOUNTER SNOMED Code(s): 3964551 Plan: 1. Continue pain control 2. Anticoagulation with Plavix and Aspirin 325 mg daily 3. Start physical therapy and ambulation, toe-touch weightbearing with walker 4. Anticipate discharge to skilled rehab mostly likely.
[2020-10-03 09:10] LABS: African American GFR (CKD) 98.9 (60.0-200.0); Anion Gap 9.4 mmol/L (4.00-12.00); BUN/Creat Ratio 15.71 Ratio (12.00-20.00); Calcium 7.6 mg/dL (8.7-10.3); Carbon Dioxide 23.6 mmol/L (21.6-31.8); Non-African American GFR(CKD) 85.4 (60.0-200.0); Potassium 4.7 mmol/L (3.5-5.5)
[2020-10-03] MEDS: CITALOPRAM HYDROBROMIDE 20 MG TAB PO SCH (09:42)
[2020-10-03] MEDS: ATORVASTATIN 20 MG TAB PO SCH (09:43)
[2020-10-03] MEDS: HYDROcodone/APAP 5-325MG 1 EACH TAB PO PRN ×2 (11:15→21:35)
[2020-10-03] MEDS: CLOPIDOGREL 75 MG TAB PO SCH (13:59)
[2020-10-03] MEDS: ASPIRIN 325 MG TAB PO SCH (13:59)
--- NOTE | 2020-10-03 17:41 | P.PN ---
Progress Note - Text Progress Note Date: 10/03/20 - Chief Complaint Hip fracture History of presenting complaint: This is a pleasant 74-year-old patient off visiting physician. Chronic stable medical conditions include hypertension, hyperlipidemia with a stroke last year. That has left the patient becomes left side. She is able to move her left arm and little bit not her leg. Has a baseline dysarthria. Able to swallow. Has a wheelchair and a walker at home. Patient had a mechanical fall today with a left hip fracture. Initially transferred to [facility] where she was transferred here. Has a left IT fracture. No chest pain or palpitation. No cardiac symptoms. On October 02 patient underwent open reduction internal fixation with nail and locking screws. Today-laying in bed. Some pain at the operative site. No nausea vomiting. Did tolerate her diet. Laying in bed. Review of systems: Was done for constitutional, cardiovascular, GI, pulmonary. Muscular skeletal relevant finding as above Active Medications Hydrocodone Bitart/Acetaminophen (Hydrocodone/Apap 5-325mg 1 Each Tab) 1 each PO Q4HR PRN PRN Reason: Pain Scale 1 to 5 Last Admin: 10/03/20 11:15 Dose: 1 each Documented by: Hydrocodone Bitart/Acetaminophen (Hydrocodone/Apap 5-325mg 1 Each Tab) 2 each PO Q4HR PRN PRN Reason: Pain Scale 6 to 10 Aspirin (Aspirin 325 Mg Tab) 325 mg PO DAILY [facility] Last Admin: 10/03/20 13:59 Dose: 325 mg Documented by: Atorvastatin Calcium (Atorvastatin 20 Mg Tab) 20 mg PO DAILY [facility] Last Admin: 10/03/20 09:43 Dose: 20 mg Documented by: Citalopram Hydrobromide (Citalopram Hydrobromide 20 Mg Tab) 20 mg PO DAILY [facility] Last Admin: 10/03/20 09:42 Dose: 20 mg Documented by: Clopidogrel Bisulfate (Clopidogrel 75 Mg Tab) 75 mg PO DAILY [facility] Last Admin: 10/03/20 13:59 Dose: 75 mg Documented by: Diazepam (Diazepam 5 Mg Tab) 5 mg PO Q6H PRN PRN Reason: Spasms Last Admin: 10/02/20 00:02 Dose: 5 mg Documented by: Hydromorphone HCl (Hydromorphone 0.5 Mg/0.5 Ml Syringe) 0.5 mg IVP Q3HR PRN PRN Reason: Breakthrough Pain Last Admin: 10/03/20 03:46 Dose: 0.5 mg Documented by: Sodium Chloride (Saline 0.9%) 1,000 mls @ 100 mls/hr IV .Q10H BRE Last Admin: 10/03/20 10:18 Dose: Not Given Documented by: Naloxone HCl (Naloxone 0.4 Mg/Ml 1 Ml Vial) 0.2 mg IV Q2M PRN PRN Reason: Opioid Reversal Naloxone HCl (Naloxone 0.4 Mg/Ml 1 Ml Vial) 0.2 mg IV Q2M PRN PRN Reason: Opioid Reversal Ondansetron HCl (Ondansetron 4 Mg/2 Ml Vial) 4 mg IVP Q6HR PRN PRN Reason: Nausea And Vomiting Last Admin: 10/02/20 15:45 Dose: 4 mg Documented by: Physical examination: VITAL SIGNS: 97.9, 869, 18, 109/62, 25% on room air GENERAL: BMI 45.7, laying in bed, awake. EYES: Pupils equal. Conjunctiva normal. NECK: JVD not raised; masses not palpable. HEART: First and second heart sounds are normal; no edema. LUNGS: Respiratory rate normal; clear to auscultation. ABDOMEN: Soft, nontender, liver spleen not palpable, no masses palpable. PSYCH: Alert and oriented x3; mood and affect normal. NEUROLOGICAL: Mild dysarthria. Weakness of the left side of the face. Increased palpebral fissure. Part of the left arm is 4/5. Power of the left leg is 1/5. MUSCULAR skeletal: Dressing over the left leg hip incision site INVESTIGATIONS, reviewed in the clinical context: White count 18.9 hemoglobin 9.9 potassium 4.7 creatinine 0.7 White count 7.3 hemoglobin 10 platelets 375 potassium 4 creatinine 0.78 UA negative for leukoesterase X-ray of the left hip reported to have IT fracture Assessment: -Left femur IT fracture secondary to followed by open reduction internal fixation with nail and screws -Essential hypertension -Hyperlipidemia -Baseline dysarthria from prior stroke -Chronic gait dysfunction uses a walker and revealed just secondary to stroke -Left hemiparesis sitting to prior stroke -Depression and anxiety not otherwise specified Plan: Patient blood pressure running on the lower side. Continue his IV fluids. Patient is aspirin for DVT prophylaxis postsurgery. Discussed with the patient. Thank you Dr. Thornton
[2020-10-03] MEDS: diazePAM 5 MG TAB PO PRN (22:41)
--- NOTE | 2020-10-04 08:41 | P.PN ---
Subjective Progress Note Date: 10/04/20 Principal diagnosis: Status post left hip IT nail This is a 74 year-old female post left hip long IT nail. This is post-op day 2. The patient was evaluated at the bedside today. The patient denies nausea, vomiting, abdominal pain, shortness of breath, and chest pain this morning. She states her pain is controlled at this time but she is experiencing some muscle spasms in the leg. The patient has been up with physical therapy but is moving slowly. Objective - Vital Signs Vital signs: Vital Signs Temp 98.0 F 10/04/20 07:04 Pulse 104 H 10/04/20 07:04 Resp 18 10/04/20 07:04 BP 133/77 10/04/20 07:04 Pulse Ox 93 L 10/04/20 07:04 Intake & Output 10/03/20 10/04/20 10/04/20 18:59 06:59 18:59 Output Total 150 850 Balance -150 -850 Output: Urine 150 850 Other: Voiding Method Indwelling Catheter Indwelling Catheter - Exam The patient does not appear in acute distress. Alert and orientated x3. Dressing is clean dry and intact. Bilateral calves are soft but very tender. Minimal foot and ankle motion without difficulty. Sensation and circulatory status is intact. - Labs CBC & Chem 7: 10/03/20 06:11 10/03/20 06:11 Labs: Abnormal Lab Results - Last 24 Hours (Table) 10/01/20 10/03/20 Range/Units 13:26 06:11 Calcium 7.6 L (8.7-10.3) mg/dL Crossmatch See Detail Assessment and Plan (1) CVA (cerebrovascular accident) Current Visit: Yes Status: Acute Code(s): I63.9 - CEREBRAL INFARCTION, UNSPECIFIED SNOMED Code(s): 448050690 (2) Hyperlipidemia Current Visit: Yes Status: Acute Code(s): E78.5 - HYPERLIPIDEMIA, UNSPECIFIED SNOMED Code(s): 09001469 (3) Hypertension Current Visit: Yes Status: Acute Code(s): I10 - ESSENTIAL (PRIMARY) HYPERTENSION SNOMED Code(s): 13314744 (4) Closed intertrochanteric fracture of left femur Current Visit: Yes Status: Acute Code(s): S72.142A - DISPLACED INTERTROCHANTERIC FRACTURE OF LEFT FEMUR, INIT SNOMED Code(s): 42893655 (5) Fall Current Visit: Yes Status: Acute Code(s): W19.XXXA - UNSPECIFIED FALL, INITIAL ENCOUNTER SNOMED Code(s): 9841975 Plan: 1. Continue pain control, Valium is ordered for muscle spasms 2. Anticoagulation with Plavix and Aspirin 325 mg daily 3. Continue physical therapy and ambulation, toe-touch weightbearing with walker 4. Anticipate discharge to [facility] tomorrow if cleared medically.
[2020-10-04] MEDS: ASPIRIN 325 MG TAB PO SCH (08:57)
[2020-10-04] MEDS: CLOPIDOGREL 75 MG TAB PO SCH (08:57)
[2020-10-04] MEDS: ATORVASTATIN 20 MG TAB PO SCH (08:57)
[2020-10-04] MEDS: CITALOPRAM HYDROBROMIDE 20 MG TAB PO SCH (08:58)
[2020-10-04] MEDS: HYDROcodone/APAP 5-325MG 1 EACH TAB PO PRN ×2 (08:58→20:39)
[2020-10-04] MEDS: SODIUM CHLORIDE 0.9% 1,000 ML IV SCH ×2 (10:05→20:38)
[2020-10-04] MEDS: diazePAM 5 MG TAB PO PRN (16:53)
[2020-10-04 19:29] VITALS: TEMP 98.5
--- NOTE | 2020-10-04 23:41 | P.PN ---
Progress Note - Text Progress Note Date: 10/04/20 - Chief Complaint Hip fracture History of presenting complaint: This is a pleasant 74-year-old patient off visiting physician. Chronic stable medical conditions include hypertension, hyperlipidemia with a stroke last year. That has left the patient becomes left side. She is able to move her left arm and little bit not her leg. Has a baseline dysarthria. Able to swallow. Has a wheelchair and a walker at home. Patient had a mechanical fall today with a left hip fracture. Initially transferred to [facility] where she was transferred here. Has a left IT fracture. No chest pain or palpitation. No cardiac symptoms. On October 02 patient underwent open reduction internal fixation with nail and locking screws. Today-l eating some. Laying in bed. Patient was placed in a chair. 2 person assist. Review of systems: Was done for constitutional, cardiovascular, GI, pulmonary. Muscular skeletal relevant finding as above Active Medications Hydrocodone Bitart/Acetaminophen (Hydrocodone/Apap 5-325mg 1 Each Tab) 1 each PO Q4HR PRN PRN Reason: Pain Scale 1 to 5 Last Admin: 10/04/20 20:39 Dose: 1 each Documented by: Hydrocodone Bitart/Acetaminophen (Hydrocodone/Apap 5-325mg 1 Each Tab) 2 each PO Q4HR PRN PRN Reason: Pain Scale 6 to 10 Aspirin (Aspirin 325 Mg Tab) 325 mg PO DAILY [facility] Last Admin: 10/04/20 08:57 Dose: Not Given Documented by: Atorvastatin Calcium (Atorvastatin 20 Mg Tab) 20 mg PO DAILY [facility] Last Admin: 10/04/20 08:57 Dose: 20 mg Documented by: Citalopram Hydrobromide (Citalopram Hydrobromide 20 Mg Tab) 20 mg PO DAILY [facility] Last Admin: 10/04/20 08:58 Dose: 20 mg Documented by: Clopidogrel Bisulfate (Clopidogrel 75 Mg Tab) 75 mg PO DAILY [facility] Last Admin: 10/04/20 08:57 Dose: 75 mg Documented by: Diazepam (Diazepam 5 Mg Tab) 5 mg PO Q6H PRN PRN Reason: Spasms Last Admin: 10/04/20 16:53 Dose: 5 mg Documented by: Hydromorphone HCl (Hydromorphone 0.5 Mg/0.5 Ml Syringe) 0.5 mg IVP Q3HR PRN PRN Reason: Breakthrough Pain Last Admin: 10/03/20 03:46 Dose: 0.5 mg Documented by: Sodium Chloride (Saline 0.9%) 1,000 mls @ 100 mls/hr IV .Q10H BRE Last Admin: 10/04/20 20:38 Dose: 100 mls/hr Documented by: Naloxone HCl (Naloxone 0.4 Mg/Ml 1 Ml Vial) 0.2 mg IV Q2M PRN PRN Reason: Opioid Reversal Naloxone HCl (Naloxone 0.4 Mg/Ml 1 Ml Vial) 0.2 mg IV Q2M PRN PRN Reason: Opioid Reversal Ondansetron HCl (Ondansetron 4 Mg/2 Ml Vial) 4 mg IVP Q6HR PRN PRN Reason: Nausea And Vomiting Last Admin: 10/02/20 15:45 Dose: 4 mg Documented by: Physical examination: VITAL SIGNS: 98, 104, 18, 133/77, 93% room air GENERAL: Laying in bed, comfortable EYES: Pupils equal. Conjunctiva normal. NECK: JVD not raised; masses not palpable. HEART: First and second heart sounds are normal; no edema. LUNGS: Respiratory rate normal; clear to auscultation. ABDOMEN: Soft, nontender, liver spleen not palpable, no masses palpable. PSYCH: Alert and oriented x3; mood and affect normal. NEUROLOGICAL: Mild dysarthria. Weakness of the left side of the face. In creased palpebral fissure. Part of the left arm is 4/5. Power of the left leg is 1/5. MUSCULAR skeletal: Dressing over the left hip incision site INVESTIGATIONS, reviewed in the clinical context: White count 18.9 hemoglobin 9.9 potassium 4.7 creatinine 0.7 Previous testing White count 7.3 hemoglobin 10 platelets 375 potassium 4 creatinine 0.78 UA negative for leukoesterase X-ray of the left hip reported to have IT fracture Assessment: -Left femur IT fracture secondary to fall- followed by open reduction internal fixation with nail and screws -Essential hypertension -Hyperlipidemia -Baseline dysarthria from prior stroke -Chronic gait dysfunction uses a walker and revealed just secondary to stroke -Left hemiparesis sitting to prior stroke -Depression and anxiety not otherwise specified Plan: Discontinue IV fluids. Other medications to continue. Patient doing better. Thank you Dr. Thornton
[2020-10-05] MEDS: SODIUM CHLORIDE 0.9% 1,000 ML IV SCH ×2 (04:54→14:50)
[2020-10-05] MEDS: diazePAM 5 MG TAB PO PRN (04:56)
[2020-10-05 07:44] LABS: Anisocytosis Slight; Basophils # (A) 0.1 k/uL (0-0.2); Basophils % (A) 0 %; Eosinophils # (A) 0.2 k/uL (0-0.7); Eosinophils % (A) 2 %; HCT 25.4 % (34.0-46.0); Hypochromasia Moderate; Lymphocytes # (A) 1.3 k/uL (1.0-4.8); Lymphocytes % (A) 11 %; MCH 25.7 pg (25.0-35.0); MCV 82.9 fL (80.0-100.0); Mean Platelet Volume 7.4; Monocytes # (A) 0.6 k/uL (0-1.0); Monocytes % (A) 5 %; Neutrophils # (A) 9.6 k/uL (1.3-7.7); Neutrophils % (A) 80 %; Platelet Count 370 k/uL (150-450); RBC 3.06 m/uL (3.80-5.40); RDW 17.6 % (11.5-15.5); WBC 11.9 k/uL (3.8-10.6)
[2020-10-05 07:48] LABS: HGB 7.9 gm/dL (11.4-16.0)
--- NOTE | 2020-10-05 08:37 | P.DS ---
Providers Date of admission: 10/01/20 13:12 Expected date of discharge: 10/05/20 Attending physician: Tarik Aranda DO Consults: 10/01/20 17:44 Consult Physician Urgent Consulting Provider: Magno Au Consult Reason/Comments: surgical clearence Do you want consulting provider notified?: Yes Primary care physician: Yuri Hensley - Discharge Diagnosis(es) (1) CVA (cerebrovascular accident) Current Visit: Yes Status: Acute (2) Hyperlipidemia Current Visit: Yes Status: Acute (3) Hypertension Current Visit: Yes Status: Acute (4) Closed intertrochanteric fracture of left femur Current Visit: Yes Status: Acute (5) Fall Current Visit: Yes Status: Acute Hospital Course: This is a 74 year old female who presented to the hospital post fall at home and sustained a left hip fracture. The patient was cleared by medicine for surgery. The patient underwent a long IT nail on 10/02/[address] Aranda. The procedure was performed without complication or sequelae. The patient is doing well postoperatively. Labs and vital signs are stable on the day of discharge. On the day of discharge the patient's hip incision is healing well. There is minimal erythema. There is no active drainage noted at this time. There is minimal soft tissue swelling to the hip and thigh. The patient has full foot and ankle motion without difficulty or pain. Neurovascular status to the left lower extremity is intact. The patient is discharged to skilled rehab in stable condition. Pertinent Studies: Laboratory Tests 10/03/20 10/05/20 06:11 06:59 WBC 11.9 H RBC 3.06 L Hgb 7.9 L D Hct 25.4 L RDW 17.6 H Neutrophils # 9.6 H Sodium 139 Potassium 4.7 Chloride 106 Carbon Dioxide 23.6 Calcium 7.6 L Patient Condition at Discharge: Stable Plan - Discharge Summary Discharge Rx Participant: Yes New Discharge Prescriptions: New HYDROcodone/APAP 5-325MG [[place] 5] 1 - 2 each PO Q4-6H PRN #40 tab PRN Reason: Pain Sennosides-Docusate Sodium [Senokot-S] 2 tab PO DAILY #30 tablet Diazepam [Valium] 5 mg PO Q8H PRN 3 Days #30 tab PRN Reason: Muscle Spasm No Action Citalopram Hydrobromide [CeleXA] 20 mg PO DAILY Atorvastatin [Lipitor] 20 mg PO DAILY Sulfamethox-Tmp 800-160Mg [Bactrim DS 800-160 mg] 1 tab PO Q12HR Clopidogrel [Plavix] 75 mg PO DAILY Discharge Medication List Atorvastatin [Lipitor] 20 mg PO DAILY 01/13/19 [History] Citalopram Hydrobromide [CeleXA] 20 mg PO DAILY 01/13/19 [History] Clopidogrel [Plavix] 75 mg PO DAILY 10/01/20 [History] Sulfamethox-Tmp 800-160Mg [Bactrim DS 800-160 mg] 1 tab PO Q12HR 10/01/20 [History] Diazepam [Valium] 5 mg PO Q8H PRN 3 Days #30 tab 10/05/20 [Rx] HYDROcodone/APAP 5-325MG [[place] 5] 1 - 2 each PO Q4-6H PRN #40 tab 10/05/20 [Rx] Sennosides-Docusate Sodium [Senokot-S] 2 tab PO DAILY #30 tablet 10/05/20 [Rx] Follow up Appointment(s)/Referral(s): Yuri Hensley MD [Primary Care Provider] - 1-2 days Wayne Cole DO [Doctor of Osteopathic Medicine] - 2 Weeks Activity/Diet/Wound Care/Special Instructions: Daily dressing changes (4x4s and paper tape, ABDs if needed) and PRN drainage. Keep incision clean and dry. May shower. Garrison to be removed in the office in 2 weeks. PT - Toe-touch weightbearing with walker and assistance. Use pain medication as directed. Plavix 75 mg daily and ASA 325mg PO daily Follow up outpatient with Dr. Wayne Cole in 2 weeks. -- call for appointment. Call [facility] with questions or concerns. Discharge Disposition: TRANSFER TO SNF/ECF
[2020-10-05 08:41] VITALS: BP 107/61; PULSE 98; RESP 18
[2020-10-05] MEDS: ASPIRIN 325 MG TAB PO SCH (09:20)
[2020-10-05] MEDS: CLOPIDOGREL 75 MG TAB PO SCH (09:20)
[2020-10-05] MEDS: CITALOPRAM HYDROBROMIDE 20 MG TAB PO SCH (09:20)
[2020-10-05] MEDS: ATORVASTATIN 20 MG TAB PO SCH (09:20)
[2020-10-05] MEDS: HYDROcodone/APAP 5-325MG 1 EACH TAB PO PRN (10:17)
--- NOTE | 2020-10-06 00:26 | P.PN ---
Progress Note - Text Progress Note Date: 10/05/20 - Chief Complaint Hip fracture History of presenting complaint: This is a pleasant 74-year-old patient off visiting physician. Chronic stable medical conditions include hypertension, hyperlipidemia with a stroke last year. That has left the patient becomes left side. She is able to move her left arm and little bit not her leg. Has a baseline dysarthria. Able to swallow. Has a wheelchair and a walker at home. Patient had a mechanical fall today with a left hip fracture. Initially transferred to [facility] where she was transferred here. Has a left IT fracture. No chest pain or palpitation. No cardiac symptoms. On October 02 patient underwent open reduction internal fixation with nail and locking screws. Today-doing better. Tolerating his diet. Pain control. No chest pain or shortness of breath. Review of systems: Was done for constitutional, cardiovascular, GI, pulmonary. Muscular skeletal relevant finding as above Current medications reviewed in today's electronic records Physical examination: VITAL SIGNS: 98.5, 98, 18, 107/61, 94% room air GENERAL: Sitting up in a chair, comfortable EYES: Pupils equal. Conjunctiva normal. NECK: JVD not raised; masses not palpable. HEART: First and second heart sounds are normal; no edema. LUNGS: Respiratory rate normal; clear to auscultation. ABDOMEN: Soft, nontender, liver spleen not palpable, no masses palpable. PSYCH: Alert and oriented x3; mood and affect normal. NEUROLOGICAL: Mild dysarthria. Weakness of the left side of the face. Increased palpebral fissure. Part of the left arm is 4/5. Power of the left leg is 1/5. MUSCULAR skeletal: Dressing over the left hip incision site INVESTIGATIONS, reviewed in the clinical context: White count 11.9 hemoglobin 7.9 Previous testing White count 7.3 hemoglobin 10 platelets 375 potassium 4 creatinine 0.78 UA negative for leukoesterase X-ray of the left hip reported to have IT fracture Assessment: -Left femur IT fracture secondary to fall- followed by open reduction internal fixation with nail and screws -Essential hypertension -Hyperlipidemia -Baseline dysarthria from prior stroke -Chronic gait dysfunction uses a walker and revealed just secondary to stroke -Left hemiparesis sitting to prior stroke -Depression and anxiety not otherwise specified -Acute postprocedure blood loss anemia as expected from surgery Plan: Stable. Continue current medication. And treatment Plan. Follow with PCP. Thank you Dr. Thornton
== END 2020-10-05 16:41 | DRG 481 ==
LOC: EC 12:23 → 4SSUR 13:12
PROVIDERS: ADMIT Orthopaedic Surgery; ATTEND Orthopaedic Surgery
PROC: 0QS704Z Reposition Left Upper Femur with Internal Fixation Device, Open Approach (ICD-10-PCS; principal; 2020-10-02 14:55)
PROC: 30233N1 Transfusion of Nonautologous Red Blood Cells into Peripheral Vein, Percutaneous Approach (ICD-10-PCS; 2020-10-03)
DX: S72.142A Displaced intertrochanteric fracture of left femur, initial encounter for closed fracture (principal); I69.354 Hemiplegia and hemiparesis following cerebral infarction affecting left non-dominant side; Z68.42 Body mass index [BMI] 45.0-49.9, adult; D62 Acute posthemorrhagic anemia; I10 Essential (primary) hypertension; F41.9 Anxiety disorder, unspecified; F32.9 Major depressive disorder, single episode, unspecified; E78.5 Hyperlipidemia, unspecified; W18.30XA Fall on same level, unspecified, initial encounter; E66.01 Morbid (severe) obesity due to excess calories; R47.1 Dysarthria and anarthria; R26.9 Unspecified abnormalities of gait and mobility; B37.2 Candidiasis of skin and nail; Z79.02 Long term (current) use of antithrombotics/antiplatelets; Z79.82 Long term (current) use of aspirin; Z79.899 Other long term (current) drug therapy; Y92.009 Unspecified place in unspecified non-institutional (private) residence as the place of occurrence of the external cause; Z87.891 Personal history of nicotine dependence; Z82.49 Family history of ischemic heart disease and other diseases of the circulatory system
CPT/HCPCS: 36430; 71045; 80048; 80053; 81003; 85025; 85027; 85610; 85730; 86850; 86900; 86901; 86920; 93005; 99284

== ENCOUNTER 2021-04-23 16:36 | Inpatient (IN) | payer MEDICARE, BC ==
[2021-04-23] MEDS ORDERED: FUROSEMIDE 10 MG/ML 4 ML VIAL IV STA (16:47)
--- NOTE | 2021-04-23 16:52 | ED ---
General Adult HPI - General Stated complaint: swelling to lower extremities Time Seen by Provider: 04/23/21 16:39 Source: patient, EMS, RN notes reviewed Mode of arrival: EMS Limitations: altered mental status (Poor historian) - History of Present Illness Initial comments: Patient is a pleasant 75-year-old female presenting to the emergency Department with complaints of reported leg edema. Patient's visiting nurse sent her in. Patient has been refusing her diuretics for the past few days. Patient states her legs are chronically swollen and no change from normal. Patient denies any chest pain or dyspnea. No fever. - Related Data Home Medications Medication Instructions Recorded Confirmed Atorvastatin [Lipitor] 20 mg PO DAILY 01/13/19 10/01/20 Citalopram Hydrobromide [CeleXA] 20 mg PO DAILY 01/13/19 10/01/20 Clopidogrel [Plavix] 75 mg PO DAILY 10/01/20 10/01/20 Previous Rx's Medication Instructions Recorded Diazepam [Valium] 5 mg PO Q8H PRN 3 Days #30 tab 10/05/20 HYDROcodone/APAP 5-325MG [[place] 5] 1 - 2 each PO Q4-6H PRN #40 tab 10/05/20 Sennosides-Docusate Sodium 2 tab PO DAILY #30 tablet 10/05/20 [Senokot-S] Allergies Allergy/AdvReac Type Severity Reaction Status Date / Time No Known Allergies Allergy Verified 04/23/21 16:48 Review of Systems ROS Statement: Those systems with pertinent positive or pertinent negative responses have been documented in the HPI. ROS Other: All systems not noted in ROS Statement are negative. Constitutional: Denies: fever Eyes: Denies: eye pain ENT: Denies: ear pain Respiratory: Denies: cough, dyspnea Cardiovascular: Denies: chest pain Endocrine: Denies: fatigue Gastrointestinal: Denies: abdominal pain Genitourinary: Denies: dysuria Musculoskeletal: Denies: back pain Skin: Denies: pruritus Neurological: Denies: headache Past Medical History Past Medical History: Hyperlipidemia, Hypertension Additional Past Medical History / Comment(s): CVA LAST YEAR, L SIDED WEAKNESS. NORMALLY USE A WHEELCHAIR AND WALKER AT HOME. HELPS HER. History of Any Multi-Drug Resistant Organisms: None Reported Past Surgical History: No Surgical Hx Reported Additional Past Anesthesia/Blood Transfusion Reaction / Comment(s): NEVER HAD A BLOOD TRANSFUSION Past Psychological History: Anxiety Smoking Status: Former smoker Past Alcohol Use History: None Reported Past Drug Use History: None Reported - Past Family History Mother Family Medical History: Myocardial Infarction ([place]) Father Family Medical History: No Reported History General Exam Limitations: physical limitation General appearance: alert, in no apparent distress Head exam: Present: atraumatic Neck exam: Present: normal inspection Respiratory exam: Present: normal lung sounds bilaterally Cardiovascular Exam: Present: regular rate, normal rhythm GI/Abdominal exam: Present: soft. Absent: tenderness Extremities exam: Present: pedal edema. Absent: calf tenderness Neurological exam: Present: alert Psychiatric exam: Present: normal affect, normal mood Skin exam: Present: normal color Course Vital Signs 04/23/21 04/23/21 16:38 19:53 Temperature 98.4 F Pulse Rate 112 H 98 Respiratory 18 18 Rate Blood Pressure 127/56 101/51 O2 Sat by Pulse 97 96 Oximetry Medical Decision Making - Medical Decision Making Patient reevaluated. Family called with concerns patient is not taking care of herself and not taking medications. Case was discussed with Dr. Au, who will admit covered for Dr. Gautam. - Lab Data Result diagrams: 04/23/21 17:07 04/23/21 17:07 Lab Results 04/23/21 04/23/21 04/23/21 Range/Units 17:07 17:07 17:07 WBC 9.0 (3.8-10.6) k/uL RBC 3.86 (3.80-5.40) m/uL Hgb 9.9 L (11.4-16.0) gm/dL Hct 31.5 L (34.0-46.0) % MCV 81.8 (80.0-100.0) fL MCH 25.8 (25.0-35.0) pg MCHC 31.5 (31.0-37.0) g/dL RDW 14.6 (11.5-15.5) % Plt Count 519 H (150-450) k/uL MPV 6.9 Neutrophils % 65 % Lymphocytes % 20 % Monocytes % 6 % Eosinophils % 6 % Basophils % 1 % Neutrophils # 5.8 (1.3-7.7) k/uL Lymphocytes # 1.8 (1.0-4.8) k/uL Monocytes # 0.6 (0-1.0) k/uL Eosinophils # 0.5 (0-0.7) k/uL Basophils # 0.1 (0-0.2) k/uL Hypochromasia Slight Sodium 137 (137-145) mmol/L Potassium 3.7 (3.5-5.1) mmol/L Chloride 103 (98-107) mmol/L Carbon Dioxide 27 (22-30) mmol/L Anion Gap 7 mmol/L BUN 14 (7-17) mg/dL Creatinine 0.61 (0.52-1.04) mg/dL Est GFR (CKD-EPI)AfAm >90 (>60 ml/min/1.73 sqM) Est GFR (CKD-EPI)NonAf 89 (>60 ml/min/1.73 sqM) Glucose 104 H (74-99) mg/dL Calcium 8.9 (8.4-10.2) mg/dL Magnesium 1.7 (1.6-2.3) mg/dL Total Bilirubin 0.1 L (0.2-1.3) mg/dL AST 18 (14-36) U/L ALT <6 (4-34) U/L Alkaline Phosphatase 126 (38-126) U/L NT-Pro-B Natriuret Pep 307 pg/mL Total Protein 6.6 (6.3-8.2) g/dL Albumin 3.1 L (3.5-5.0) g/dL - Radiology Data Radiology results: report reviewed (Bilateral lower extremity ultrasound negative for DVT. Limited exam.), image reviewed (Cannot exclude pneumonia versus mass left lower lobe. Similar right upper lobe.) Disposition Clinical Impression: Pneumonia, Leg edema Disposition: ADMITTED IP TO THIS HOSP Is patient prescribed a controlled substance at d/c from ED?: No Referrals: Yuri Hensley MD [Primary Care Provider] - 1-2 days Decision Time: 20:00
[2021-04-23 17:14] LABS: Basophils # (A) 0.1 k/uL (0-0.2); Basophils % (A) 1 %; Eosinophils # (A) 0.5 k/uL (0-0.7); Eosinophils % (A) 6 %; HCT 31.5 % (34.0-46.0); HGB 9.9 gm/dL (11.4-16.0); Hypochromasia Slight; Lymphocytes # (A) 1.8 k/uL (1.0-4.8); Lymphocytes % (A) 20 %; MCH 25.8 pg (25.0-35.0); MCHC 31.5 g/dL (31.0-37.0); MCV 81.8 fL (80.0-100.0); Mean Platelet Volume 6.9; Monocytes # (A) 0.6 k/uL (0-1.0); Monocytes % (A) 6 %; Neutrophils # (A) 5.8 k/uL (1.3-7.7); Neutrophils % (A) 65 %; Platelet Count 519 k/uL (150-450); RBC 3.86 m/uL (3.80-5.40); RDW 14.6 % (11.5-15.5)
[2021-04-23 17:32] LABS: ALT <6 U/L (4-34); AST 18 U/L (14-36); African American GFR (CKD) >90 (>60 ml/min/1.73 sqM); Albumin 3.1 g/dL (3.5-5.0); Alkaline Phosphatase 126 U/L (38-126); Anion Gap 7 mmol/L; Blood Urea Nitrogen 14 mg/dL (7-17); Calcium 8.9 mg/dL (8.4-10.2); Carbon Dioxide 27 mmol/L (22-30); Chloride 103 mmol/L (98-107); Glucose 104 mg/dL (74-99); Magnesium 1.7 mg/dL (1.6-2.3); Non-African American GFR(CKD) 89 (>60 ml/min/1.73 sqM); Potassium 3.7 mmol/L (3.5-5.1); Sodium 137 mmol/L (137-145); Total Bilirubin 0.1 mg/dL (0.2-1.3); Total Protein 6.6 g/dL (6.3-8.2)
--- NOTE | 2021-04-23 18:34 | XR ---
EXAMINATION TYPE: XR chest 2V DATE OF EXAM: 04/23/2021 COMPARISON: 10/01/2020 HISTORY: 75 year-old female shortness of breath, difficulty breathing TECHNIQUE: AP and lateral views FINDINGS: Heart upper limits of normal in size. Focal opacity posterior left base measuring 5.1 cm and also ano ther subtle density in the right upper lobe. Advanced degenerative change of the right shoulder. Gonzalez ges of chronic rotator cuff tear on both sides. No pleural effusion. IMPRESSION: Unable to exclude a pneumonia versus basilar left lower lobe mass measuring 5.1 cm. A second subtle d ensity is present in the right upper lobe. Again, pneumonia versus mass.
--- NOTE | 2021-04-23 18:47 | US ---
EXAMINATION TYPE: US venous doppler duplex LE DATE OF EXAM: 04/23/2021 5:45 PM COMPARISON: NONE CLINICAL HISTORY: swelling. Bilateral lower leg edema SIDE PERFORMED: bilateral TECHNIQUE: The lower extremity deep venous system is examined utilizing real time linear array sonog morro with graded compression, doppler sonography and color-flow sonography. VESSELS IMAGED: Common Femoral Vein Deep Femoral Vein Greater Saphenous Vein * Femoral Vein Popliteal Vein Small Saphenous Vein * Proximal Calf Veins (* superficial vessels) Right Leg: extreme technical limitations. patient noncooperative, unwilling to remove pants, unabl e to visualize portions of the femoral vein. patient unable to tolerate compression at lower femoral vein. unable to visualize popliteal vessels, patient unwilling to move leg into adequate position. no evidence of DVT as visualized. lymph node right groin = 3.8 x 1.1 x 2.3cm Left Leg: *extreme technical limitations. patient noncooperative, unwilling to remove pants, unable to visualize mid portion of the femoral vein. unable to evaluate femoral vein lower and popliteal vei n, patient pushing technologists hand away. no evidence of DVT as visualized. IMPRESSION: Limited exam shows no evidence of deep vein thrombosis.
[2021-04-23] MEDS ORDERED: AZITHROMYCIN 500 MG in SODIUM CHLORIDE 0.9% 250 ML IVPB STA (20:00)
[2021-04-23] MEDS ORDERED: PNEUMONIA PROTOCOL UTILIZED 1 EACH MISC PO PRN (20:00)
[2021-04-23] MEDS ORDERED: IOPAMIDOL CONTRAST (ORAL USE) VIAL PO PRN ×2 (21:52→21:56)
--- NOTE | 2021-04-23 21:59 | P.HPIM ---
History of Present Illness H&P Date: 04/23/21 Chief Complaint: Lower extremity swelling History of presenting complaint: This is a 75-year-old patient , being followed by Dr. Hensley from visiting physician. Chronic stable medical conditions include hypertension, hyperlipidemia with prior stroke. That has left the patient weak left side. She is able to move her left arm and little bit, not her leg. Has a baseline d ysarthria. Able to swallow. Has a wheelchair and a walker at home. It's unclear to the circumstances exactly what the patient's here and does seem the patient having increasing swelling of the lower extremity. Patient states that her niece sent in. Her appetite is okay. Denies any obvious fever and chills. Questionable shortness of breath. Review of systems: GEN.: Tired EYES: None HEENT: None NECK: None RESPIRATORY: None CARDIOVASCULAR: None GASTROINTESTINAL: None GENITOURINARY: None MUSCULOSKELETAL: Joint pains LYMPHATICS: None HEMATOLOGICAL: None PSYCHIATRY: None NEUROLOGICAL: Left-sided weakness especially the leg, baseline dysarthria Past medical history to include: Hypertension, hyperlipidemia, stroke with left-sided weakness, dysarthria, uses a wheelchair and a walker, anxiety Social history: Uses a wheelchair and a walker. Smoked a pack a day for close to 60 years, stopped about 2 years ago. No alcohol. Physical examination: VITAL SIGNS: 98.4, 112, 18, 1 27 x 56, 97% on room air GENERAL: BMI 33.6, planning in bed, appears other irritated EYES: Pupils equal. Left conjunctiva is everted HEENT: External appearance of nose and ears normal, oral cavity grossly normal. NECK: JVD not raised; masses not palpable. HEART: First and second heart sounds are normal; some edema. LUNGS: Respiratory rate increased; decreased breath sounds ABDOMEN: Soft, nontender, liver spleen not palpable, no masses palpable. PSYCH: Alert and oriented x3; mood and affect anxious and irritated. NEUROLOGICAL: Mild dysarthria. Weakness of the left side of the face. Increased palpebral fissure. Power of the left arm is 4/5. Power of the left leg is 1/5. Patient got tenderness in both the leg superficial MUSCULAR skeletal: Evidence of OA LYMPHATICS: No lymph nodes palpable in the axilla and neck INVESTIGATIONS, reviewed in the clinical context: WBC 9 hemoglobin 9.9 platelets 519 potassium 3.7 creatinine 0.61 Coronavirus [PCR]-not detected Doppler ultrasound lower extremity: No obvious evidence of DVT Chest x-ray film personally reviewed by me-shows a mass on the left side and on the right side Assessment and plan: -Bilateral lower extremity swelling likely from venous insufficiency from decreased activity Bilateral Daniel wraps -Lung masses in a patient is a nonsmoker Computed tomography scan of the chest with contrast. 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 Questions answered. Consult pulmonary. Computed tomography scan of his chest abdomen pelvis ordered. No clinical evidence of pneumonia. Stop antibiotics Past Medical History Past Medical History: Hyperlipidemia, Hypertension Additional Past Medical History / Comment(s): CVA LAST YEAR, L SIDED WEAKNESS. NORMALLY USE A WHEELCHAIR AND WALKER AT HOME. HELPS HER. History of Any Multi-Drug Resistant Organisms: None Reported Past Surgical History: No Surgical Hx Reported Additional Past Anesthesia/Blood Transfusion Reaction / Comment(s): NEVER HAD A BLOOD TRANSFUSION Past Psychological History: Anxiety Smoking Status: Former smoker Past Alcohol Use History: None Reported Past Drug Use History: None Reported - Past Family History Mother Family Medical History: Myocardial Infarction ([place]) Father Family Medical History: No Reported History Medications and Allergies Home Medications Medication Instructions Recorded Confirmed Type Atorvastatin [Lipitor] 20 mg PO HS 01/13/19 04/23/21 History Clopidogrel [Plavix] 75 mg PO DAILY 10/01/20 04/23/21 History HYDROcodone/APAP 7.5-325MG [[place] 1 tab PO HS PRN 04/23/21 04/23/21 History 7.5-325] Mirabegron [Myrbetriq] 25 mg PO DAILY 04/23/21 04/23/21 History Nystatin [Nystop] 1 applic TOPICAL BID 04/23/21 04/23/21 History Potassium Chloride [Klor-Con 8] 8 meq PO DAILY 04/23/21 04/23/21 History SILVER sulfADIAZINE Cream 1 applic TOPICAL DAILY 04/23/21 04/23/21 History [Silvadene 1% Cream] Sertraline HCl [Zoloft] 100 mg PO DAILY 04/23/21 04/23/21 History Torsemide [Demadex] 50 mg PO DAILY 04/23/21 04/23/21 History Allergies Allergy/AdvReac Type Severity Reaction Status Date / Time No Known Allergies Allergy Verified 04/23/21 16:48 Physical Exam Vitals: Vital Signs Temp Pulse Resp BP Pulse Ox 04/23/21 19:53 98 18 101/51 96 04/23/21 16:38 98.4 F 112 H 18 127/56 97 Intake and Output 04/23/21 04/23/21 04/23/21 06:59 14:59 22:59 Other: Weight 88.904 kg Results CBC & Chem 7: 04/23/21 17:07 04/23/21 17:07 Labs: Abnormal Lab Results - Last 24 Hours (Table) 04/23/21 04/23/21 Range/Units 17:07 17:07 Hgb 9.9 L (11.4-16.0) gm/dL Hct 31.5 L (34.0-46.0) % Plt Count 519 H (150-450) k/uL Glucose 104 H (74-99) mg/dL Total Bilirubin 0.1 L (0.2-1.3) mg/dL Albumin 3.1 L (3.5-5.0) g/dL
[2021-04-23] MEDS: HYDROcodone/APAP 7.5-325MG 1 EACH TAB PO PRN (23:52)
[2021-04-23] MEDS: ENOXAPARIN 40 MG/0.4 ML SYRINGE SQ SCH (23:53)
--- NOTE | 2021-04-24 01:30 | CT ---
EXAMINATION TYPE: CT ChestAbdPelvis w con DATE OF EXAM: 04/23/2021 COMPARISON: CT abdomen pelvis 01/16/2019 HISTORY: Lung masses. Pt refused oral contrast. CT DLP: 1720.5 mGycm Automated exposure control for dose reduction was used. CONTRAST: Performed with IV Contrast, patient injected with 100 mL of Isovue 300. Images obtained from the thoracic inlet to the floor the pelvis with IV contrast. There is 5.6 cm masslike density in the left lower lobe. There is no calcification. Heart size is nor mal. There is no pleural effusion. There is no pericardial effusion. There is no mediastinal adenopat hy. Thoracic aorta is atheromatous. There are no hilar masses. The right lung is clear of infiltrate. There is 1.5 cm cyst in the anterior left lobe of the liver gallbladder is intact. The bile ducts are not dilated. There is 1 cm cyst in the anterior right lobe of the liver. Spleen is intact. There is no pancreatic mass. Abdominal aorta is atheromatous. Stomach is intact. There is no adrenal mass. Kidneys have normal size. There is no hydronephrosis. Ureters are not dilat ed. There is no retroperitoneal adenopathy. Abdominal aorta is atheromatous. Bladder distends smoothl y. There is left hip surgery. There is intramedullary aldair in the left femur. Exam limited by metal ar tifact. The pelvic ring appears intact. I see no compression fracture in the thoracic and lumbar spin e. The sternum is intact. The ribs appear intact There is no mesenteric edema. There is no ascites or free air. Bowel obstruction. Delayed images sanjuana w normal renal excretion. IMPRESSION: Large lobulated noncalcified mass in the left lower lobe suspicious for tumor and is essentially new compared to old exam. There there is some patchy airspace infiltrate in the left lower lobe on old ex am. Hepatic cysts appear unchanged. No acute abnormality within the abdomen pelvis. Follow-up recommended.
[2021-04-24] MEDS: ALBUMIN HUMAN 25% 50 ML in EMPTY BAG 1 BAG IVPB SCH ×4 (01:54→04:26)
--- NOTE | 2021-04-24 08:09 | XR ---
EXAMINATION TYPE: XR chest 1V DATE OF EXAM: 04/24/2021 HISTORY: Shortness of breath. COMPARISON: 04/23/2021 TECHNIQUE: Single view of the chest is submitted. FINDINGS: Demonstrated are scattered senescent parenchymal change. Mass density left lower lobe persists and is unchanged and may reflect a pneumonia versus underlying neoplasm. Right upper lobe vague density also is unchanged. The heart is stable. Hilar and mediastinal structures are within normal limits. Degenerative changes are seen of the dorsal spine. IMPRESSION: 1. Stable chest.
[2021-04-24] MEDS: POTASSIUM CHLORIDE ER 10 MEQ TAB.ER.PRT PO SCH (08:17)
[2021-04-24] MEDS: SERTRALINE 100 MG TAB PO SCH (08:17)
[2021-04-24] MEDS: CLOPIDOGREL 75 MG TAB PO SCH (08:17)
[2021-04-24] MEDS ORDERED: TORSEMIDE 20 MG TAB PO SCH (09:00)
[2021-04-24] MEDS: NON FORMULARY DRUG (Mirabegron [Myrbetriq] 25 MG Tab.Er.24h) PO SCH (09:28)
--- NOTE | 2021-04-24 10:16 | P.CNPUL ---
History of Present Illness Consult date: 04/24/21 Reason for consult: dyspnea, pneumonia, lung mass, abnormal CXR/CT Chief complaint: Shortness of breath and hypertension History of present illness: This is a pleasant 75-year-old female patient came into the hospital increased swelling of the lower extremity edema, patient has a history of the dyslipidemia stroke with residual left-sided weakness, patient use a walker at home and wheelchair, patient used to smoke extensively came into the hospital with ongoing intermittent shortness of breath also lower extremity swelling overnight patient developed hypotension blood pressure was 80/54, heart rate 116 patient remains afebrile, oxygen saturation was 97%, however responded with albumin, currently stable with blood pressure 110/70 respiratory rate 20 heart rate 92 and temperature 90.8, patient underwent chest x-ray admitted revealed left lower lobe infiltrate versus mass and right upper lobe density likely neoplasm versus pneumonia however computed tomography scan of the chest failed to reveal right upper lobe nodule however left lower lobe multi lobulated dense mass is present likely neoplasm, however this masslike infiltrate was seen in October 2020 and was present in January 2019 as well reviewing old records Review of Systems All systems: negative Past Medical History Past Medical History: CVA/TIA, Hyperlipidemia, Hypertension, Skin Disorder Additional Past Medical History / Comment(s): CVA with L sided weakness/dysarthria/L facial droop, wheelchair bound, bilateral lower leg/pedal neuropathy, chronic bilateral lower leg edema, urinary stress incontinence, epistaxis with acute blood loss anemia/transfusions, pt states sores present on R leg/foot and coccyx. History of Any Multi-Drug Resistant Organisms: None Reported Past Surgical History: Orthopedic Surgery Additional Past Surgical History / Comment(s): ORIF L hip Past Anesthesia/Blood Transfusion Reactions: No Reported Reaction Additional Past Anesthesia/Blood Transfusion Reaction / Comment(s): Pt has received blood without reaction. Smoking Status: Former smoker - Past Family History Mother Family Medical History: Myocardial Infarction ([place]) Additional Family Medical History / Comment(s): Mother of a [place] at the age of 62 yrs. Father Family Medical History: No Reported History Additional Family Medical History / Comment(s): Father of natural causes at the age of 99yrs. Medications and Allergies Home Medications Medication Instructions Recorded Confirmed Type Atorvastatin [Lipitor] 20 mg PO HS 01/13/19 04/23/21 History Clopidogrel [Plavix] 75 mg PO DAILY 11/01/20 05/24/21 History HYDROcodone/APAP 7.5-325MG [[place] 1 tab PO HS PRN 04/23/21 04/23/21 History 7.5-325] Mirabegron [Myrbetriq] 25 mg PO DAILY 04/23/21 04/23/21 History Nystatin [Nystop] 1 applic TOPICAL BID 04/23/21 04/23/21 History Potassium Chloride [Klor-Con 8] 8 meq PO DAILY 04/23/21 04/23/21 History SILVER sulfADIAZINE Cream 1 applic TOPICAL DAILY 04/23/21 04/23/21 History [Silvadene 1% Cream] Sertraline HCl [Zoloft] 100 mg PO DAILY 04/23/21 04/23/21 History Torsemide [Demadex] 50 mg PO DAILY 04/23/21 04/23/21 History Allergies Allergy/AdvReac Type Severity Reaction Status Date / Time No Known Allergies Allergy Verified 04/23/21 16:48 Physical Exam Vitals: Vital Signs Temp Pulse Pulse Resp BP BP Pulse Ox 04/24/21 09:52 97.9 F 92 20 111/72 96 04/24/21 09:19 89 20 107/59 97 04/24/21 08:19 98.4 F 96 20 107/50 97 04/24/21 07:13 92 98/45 04/24/21 06:21 89 111/47 04/24/21 06:00 91 15 79/50 04/24/21 05:44 97 16 115/52 04/24/21 05:26 97 17 85/50 98 04/24/21 05:05 99 16 89/42 04/24/21 04:51 96 16 101/44 99 04/24/21 04:34 101 H 16 81/54 04/24/21 03:50 107 H 22 104/54 04/24/21 03:05 108 H 107/54 04/24/21 02:52 108 H 84/44 04/24/21 02:27 112 H 16 96/65 04/24/21 02:07 116 H 17 80/54 97 04/24/21 01:16 120 H 18 84/56 94 L 04/24/21 00:43 114 H 18 134/61 95 05/24/21 19:53 98 18 101/51 96 04/23/21 16:38 98.4 F 112 H 18 127/56 97 Intake and Output 04/23/21 04/24/21 04/24/21 22:59 06:59 14:59 Other: Weight 88.904 kg 88.904 kg - Constitutional General appearance: average body habitus, cooperative, disheveled, mild distress - EENT Eyes: PERRLA Ears: bilateral: normal - Neck Neck: normal ROM Carotids: bilateral: upstroke normal Thyroid: bilateral: normal size - Respiratory Respiratory: bilateral: diminished - Cardiovascular Rhythm: regular Heart sounds: normal: S1, S2 - Gastrointestinal General gastrointestinal: normal bowel sounds - Integumentary Integumentary: normal turgor - Neurologic Neurologic: CNII-XII intact - Musculoskeletal Musculoskeletal: gait normal, generalized weakness, left sided weakness - Psychiatric Psychiatric: A&O x's 3, appropriate affect, intact judgment & insight Results - Laboratory Findings CBC and BMP: 04/23/21 17:07 04/23/21 17:07 Abnormal lab findings: Abnormal Labs 04/23/21 04/23/21 17:07 17:07 Hgb 9.9 L Hct 31.5 L Plt Count 519 H Glucose 104 H Total Bilirubin 0.1 L Albumin 3.1 L - Diagnostic Findings Chest x-ray: report reviewed, image reviewed CT scan - chest: report reviewed, image reviewed (Finding as noted above) Assessment and Plan Assessment: Hypotension likely due to intravascular volume depletion and dehydration responded well with as been given will monitor observe if reoccurred may consider midodrine Left lower lobe pneumonia versus neoplasm, review of the x-ray film 2019 were showing this masslike infiltrate Left-sided weakness due to prior stroke Dyslipidemia Generalized weakness and medical debility Plan: Continue antibiotics If blood pressure drop down again consider using abdomen or start midodrine Will discuss with the patient and primary service about biopsy of the left mass if they want to pursue however it has been there since 2019 Further plan of care as per clinical response of the patient Time with Patient: Greater than 30
[2021-04-24] MEDS: GABAPENTIN 100 MG CAP PO SCH ×3 (12:17→20:35)
[2021-04-24] MEDS: HYDROcodone/APAP 7.5-325MG 1 EACH TAB PO PRN (12:17)
[2021-04-24 12:35] LABS: African American GFR (CKD) >90 (>60 ml/min/1.73 sqM); Anion Gap 10 mmol/L; Blood Urea Nitrogen 13 mg/dL (7-17); Calcium 9.1 mg/dL (8.4-10.2); Carbon Dioxide 28 mmol/L (22-30); Chloride 100 mmol/L (98-107); Glucose 101 mg/dL (74-99); Non-African American GFR(CKD) 90 (>60 ml/min/1.73 sqM); Potassium 4.1 mmol/L (3.5-5.1); Sodium 138 mmol/L (137-145)
[2021-04-24] MEDS: NYSTATIN 100,000 UNIT/GM POWD 15 GM TOPICAL SCH ×2 (15:02→20:35)
--- NOTE | 2021-04-24 15:58 | P.PN ---
Progress Note - Text Progress Note Date: 04/24/21 Chief Complaint: Lower extremity swelling History of presenting complaint: This is a 75-year-old patient , being followed by Dr. Hensley from visiting physician. Chronic stable medical conditions include hypertension, hyperlipidemia with prior stroke. That has left the patient weak left side. She is able to move her left arm and little bit, not her leg. Has a baseline dysarthria. Able to swallow. Has a wheelchair and a walker at home. It's unclear to the circumstances exactly what the patient's here and does seem the patient having increasing swelling of the lower extremity. Patient states that her niece sent in. Her appetite is okay. Denies any obvious fever and chills. Questionable shortness of breath. Admitted with bilateral lower extremity swelling felt to be from venous insufficiency from decreased activity. Patient did receive IV Lasix in the ER. He did drop her blood pressure. Did get some fluid resuscitation. Today: Patient having some painful peripheral neuropathy. Given IV fluids blood pressure,. Discussed with Dr. Kerns from pulmonary. Patient lung masses appear to be chronic. Currently on Plavix-will need endoscopy at some point. Patient ate about 25% of her lunch. Review of systems: Was done for constitutional, cardiovascular, GI, pulmonary. relevant finding as above Active Medications Hydrocodone Bitart/Acetaminophen (Hydrocodone/Apap 7.5-325mg 1 Each Tab) 1 each PO HS PRN PRN Reason: Pain Last Admin: 04/24/21 12:17 Dose: 1 each Documented by: Atorvastatin Calcium (Atorvastatin 20 Mg Tab) 20 mg PO HS [facility] Clopidogrel Bisulfate (Clopidogrel 75 Mg Tab) 75 mg PO DAILY [facility] Last Admin: 04/24/21 08:17 Dose: 75 mg Documented by: Enoxaparin Sodium (Enoxaparin 40 Mg/0.4 Ml Syringe) 40 mg SQ DAILY@2100 [facility] Last Admin: 04/23/21 23:53 Dose: 40 mg Documented by: Gabapentin (Gabapentin 100 Mg Cap) 100 mg PO TID [facility] Last Admin: 04/24/21 15:27 Dose: Not Given Documented by: Iopamidol (Iopamidol Contrast (Oral Use) Vial) 30 ml PO ONCE PRN PRN Reason: CT Scan Stop: 04/24/21 21:53 Iopamidol (Iopamidol Contrast (Oral Use) Vial) 30 ml PO ONCE PRN PRN Reason: CT Scan Stop: 04/24/21 21:57 Miscellaneous Information (Pneumonia Protocol Utilized 1 Each [facility]) 1 each PO ONCE PRN PRN Reason: Per Protocol Non-Formulary Medication (Mirabegron [Myrbetriq]) 25 mg PO DAILY [facility] Last Admin: 04/24/21 09:28 Dose: Not Given Documented by: Nystatin (Nystatin 100,000 Unit/Gm Powd 15 Gm) 1 applic TOPICAL BID [facility] Last Admin: 04/24/21 15:02 Dose: Not Given Documented by: Potassium Chloride (Potassium Chloride Er 10 Meq Tab.Er.Prt) 10 meq PO DAILY [facility] Last Admin: 04/24/21 08:17 Dose: 10 meq Documented by: Sertraline HCl (Sertraline 100 Mg Tab) 100 mg PO DAILY [facility] Last Admin: 04/24/21 08:17 Dose: 100 mg Documented by: Silver Sulfadiazine (Silver Sulfadiazine 1% Cream 25 Gm Tube) 1 applic TOPICAL DAILY [facility] Last Admin: 04/24/21 15:02 Dose: Not Given Documented by: Sodium Chloride (Sodium Chloride 0.9% Flush 10 Ml Syringe) 10 ml IV BID [facility] Last Admin: 04/24/21 09:45 Dose: 10 ml Documented by: Torsemide (Torsemide 20 Mg Tab) 50 mg PO DAILY [facility] Last Admin: 04/24/21 09:45 Dose: 50 mg Documented by: Past medical history to include: Hypertension, hyperlipidemia, stroke with left-sided weakness, dysarthria, uses a wheelchair and a walker, anxiety Social history: Uses a wheelchair and a walker. Smoked a pack a day for close to 60 years, stopped about 2 years ago. No alcohol. Physical examination: VITAL SIGNS: 98.4, 92, 20, 111/72, 96% room air GENERAL: Laying in bed, but anxious EYES: Pupils equal. Left lower eyelid is everted NECK: JVD not raised; masses not palpable. HEART: First and second heart sounds are normal; some edema. LUNGS: Respiratory rate increased; decreased breath sounds ABDOMEN: Soft, nontender, liver spleen not palpable, no masses palpable. PSYCH: Alert and oriented x3; mood and affect anxious and irritated. NEUROLOGICAL: Mild dysarthria. Weakness of the left side of the face. In creased palpebral fissure. Power of the left arm is 4/5. Power of the left leg is 1/5. Patient got tenderness in both the leg superficial MUSCULAR skeletal: Evidence of OA INVESTIGATIONS, reviewed in the clinical context: Computed tomography scan chest abdomen pelvis contrast: 5.6 cm masslike density in the left lower lobe. This is new compared to the CAT scan from 2019 Rest nonspecific. April 24: Potassium 4.1 creatinine 0.6 WBC 9 hemoglobin 9.9 platelets 519 potassium 3.7 creatinine 0.61 Coronavirus [PCR]-not detected Doppler ultrasound lower extremity: No obvious evidence of DVT Chest x-ray film personally reviewed by me-shows a mass on the left side and on the right side Assessment and plan: -Bilateral lower extremity swelling likely from venous insufficiency from decreased activity Bilateral Daniel wraps. No Lasix. -Lung masses-left lower lobe 5.6 cm Will need bronchoscopy with biopsy. Off Plavix. -Chronic medical debility At her baseline uses a wheelchair/walker -Hyperlipidemia Continue Lipitor -Baseline dysarthria from prior stroke Able to tolerate diet -Left hemiparesis sitting to prior stroke Continue Plavix -Depression and anxiety not otherwise specified Continue with Zoloft -Chronic urinary stress incontinence Continue with myebetriq -Painful peripheral neuropathy Neurontin 100 mg 3 times a day Care was discussed with the patient's nurse earlier today. Did step down the patient from ICU to the cardiology floor with telemetry. Patient did receive IV fluids. Neurontin 100 mg 2 times a day. Daniel wrap to continue. Discussed with Dr. Woodard from pulmonary for bronchoscopy down the road.
[2021-04-24] MEDS: SODIUM CHLORIDE 0.9% 1,000 ML IV SCH (20:34)
[2021-04-24] MEDS: ATORVASTATIN 20 MG TAB PO SCH (20:35)
[2021-04-24] MEDS: ENOXAPARIN 40 MG/0.4 ML SYRINGE SQ SCH (20:35)
[2021-04-24] MEDS ORDERED: FUROSEMIDE 10 MG/ML 4 ML VIAL IV SCH (21:00)
[2021-04-25] MEDS: SODIUM CHLORIDE 0.9% 1,000 ML IV SCH ×3 (06:05→20:25)
[2021-04-25] MEDS ORDERED: AZITHROMYCIN 500 MG TAB PO SCH (09:00)
[2021-04-25] MEDS: POTASSIUM CHLORIDE ER 10 MEQ TAB.ER.PRT PO SCH (09:35)
[2021-04-25] MEDS: CLOPIDOGREL 75 MG TAB PO SCH (09:37)
[2021-04-25] MEDS: SERTRALINE 100 MG TAB PO SCH (09:37)
[2021-04-25] MEDS: GABAPENTIN 100 MG CAP PO SCH ×3 (09:37→20:24)
[2021-04-25] MEDS: NYSTATIN 100,000 UNIT/GM POWD 15 GM TOPICAL SCH ×2 (09:41→20:25)
[2021-04-25] MEDS: NON FORMULARY DRUG (Mirabegron [Myrbetriq] 25 MG Tab.Er.24h) PO SCH (11:03)
--- NOTE | 2021-04-25 11:43 | P.PN ---
Subjective Progress Note Date: 04/25/21 Principal diagnosis: Hypotension likely due to intravascular volume depletion and dehydration responded well with as been given will monitor observe if reoccurred may consider midodrine Left lower lobe pneumonia versus neoplasm, review of the x-ray film 2018 were showing this masslike infiltrate Left-sided weakness due to prior stroke Dyslipidemia Generalized weakness and medical debility 04/25/2021, patient seen eval examined during the rounds labs reviewed medications reviewed care plan discussed, respiratory status remains stable denies any chest pain able to get up and move around with support and help, swelling of the lower extremity improved now I have discussed with niece as well as the patient at length, patient expresses that she does not want any biopsy to be done for the left lower lobe mass, she has declined biopsy in the past as well according to her, she also expresses that Lord give it and will take it away if he wants to This is a pleasant 75-year-old female patient came into the hospital increased swelling of the lower extremity edema, patient has a history of the dyslipidemia stroke with residual left-sided weakness, patient use a walker at home and wheelchair, patient used to smoke extensively came into the hospital with ongoing intermittent shortness of breath also lower extremity swelling overnight patient developed hypotension blood pressure was 80/54, heart rate 116 patient remains afebrile, oxygen saturation was 97%, however responded with albumin, currently stable with blood pressure 110/70 respiratory rate 20 heart rate 92 and temperature 90.8, patient underwent chest x-ray admitted revealed left lower lobe infiltrate versus mass and right upper lobe density likely neoplasm versus pneumonia however computed tomography scan of the chest failed to reveal right upper lobe nodule however left lower lobe multi lobulated dense mass is present likely neoplasm, however this masslike infiltrate was seen in October 2020 and was present in January 2019 as well reviewing old records Objective - Vital Signs Vital signs: Vital Signs Temp 97.8 F 04/25/21 09:28 Pulse 70 04/25/21 09:28 Resp 18 04/25/21 09:28 BP 91/54 04/25/21 09:28 Pulse Ox 95 04/25/21 09:28 Intake & Output 04/24/21 04/25/21 04/25/21 18:59 06:59 18:59 Intake Total 200 960 Output Total 2049 Balance 200 -1090 Weight 88.904 kg Intake: Oral 200 960 Output: Urine 2049 Other: Voiding Method Diaper Diaper Incontinent External Catheter External Catheter # Voids 1 # Bowel Movements 1 1 1 - Exam - Constitutional General appearance: average body habitus, cooperative, disheveled, mild distress - EENT Eyes: PERRLA Ears: bilateral: normal - Neck Neck: normal ROM Carotids: bilateral: upstroke normal Thyroid: bilateral: normal size - Respiratory Respiratory: bilateral: diminished - Cardiovascular Rhythm: regular Heart sounds: normal: S1, S2 - Gastrointestinal General gastrointestinal: normal bowel sounds - Integumentary Integumentary: normal turgor - Neurologic Neurologic: CNII-XII intact - Musculoskeletal Musculoskeletal: gait normal, generalized weakness, left sided weakness - Psychiatric Psychiatric: A&O x's 3, appropriate affect, intact judgment & insight - Labs CBC & Chem 7: 04/23/21 17:07 04/24/21 11:59 Labs: Abnormal Lab Results - Last 24 Hours (Table) 04/24/21 Range/Units 11:59 Glucose 101 H (74-99) mg/dL Microbiology - Last 24 Hours (Table) 04/23/21 20:34 Blood Culture - Preliminary Blood No Growth after 24 hours 04/23/21 20:34 Blood Culture - Preliminary Blood No Growth after 24 hours Assessment and Plan Assessment: Hypotension likely due to intravascular volume depletion and dehydration responded well with as been given will monitor observe if reoccurred may consider midodrine Left lower lobe pneumonia versus neoplasm, review of the x-ray film 2018 were showing this masslike infiltrate Left-sided weakness due to prior stroke Dyslipidemia Generalized weakness and medical debility Plan: Continue antibiotics If blood pressure drop down again consider using abdomen or start midodrine We'll continue to observe closely as patient has declined the biopsy primary service updated Further plan of care as per clinical response of the patient Time with Patient: Greater than 30
[2021-04-25 14:59] VITALS: BMI 33.6
[2021-04-25 16:56] VITALS: RESP 18
[2021-04-25] MEDS: ENOXAPARIN 40 MG/0.4 ML SYRINGE SQ SCH (20:24)
[2021-04-25] MEDS: ATORVASTATIN 20 MG TAB PO SCH (20:24)
[2021-04-25] MEDS ORDERED: ERYTHROMYCIN 5 MG/GM OPHTH OINT 3.5 GM TUBE LEFT EYE SCH (21:00)
--- NOTE | 2021-04-25 22:13 | P.PN ---
Progress Note - Text Progress Note Date: 04/25/21 Chief Complaint: Lower extremity swelling History of presenting complaint: This is a 75-year-old patient , being followed by Dr. Hensley from visiting physician. Chronic stable medical conditions include hypertension, hyperlipidemia with prior stroke. That has left the patient weak left side. She is able to move her left arm and little bit, not her leg. Has a baseline dysarthria. Able to swallow. Has a wheelchair and a walker at home. It's unclear to the circumstances exactly what the patient's here and does seem the patient having increasing swelling of the lower extremity. Patient states that her niece sent in. Her appetite is okay. Denies any obvious fever and chills. Questionable shortness of breath. Admitted with bilateral lower extremity swelling felt to be from venous insufficiency from decreased activity. Patient did receive IV Lasix in the ER. He did drop her blood pressure. Did get some fluid resuscitation. Patient started on Neurontin for painful peripheral neuropathy. Left lung mass will be followed by Dr. Woodard as an outpatient with a possible view to bronchoscopy and biopsy Today: Lower extremity painful neuropathy pain better today. Review of systems: Was done for constitutional, cardiovascular, GI, pulmonary. relevant finding as above Active Medications Hydrocodone Bitart/Acetaminophen (Hydrocodone/Apap 7.5-325mg 1 Each Tab) 1 each PO HS PRN PRN Reason: Pain Last Admin: 04/24/21 12:17 Dose: 1 each Documented by: Atorvastatin Calcium (Atorvastatin 20 Mg Tab) 20 mg PO [facility] Last Admin: 04/25/21 20:24 Dose: 20 mg Documented by: Clopidogrel Bisulfate (Clopidogrel 75 Mg Tab) 75 mg PO DAILY [facility] Last Admin: 04/25/21 09:37 Dose: 75 mg Documented by: Enoxaparin Sodium (Enoxaparin 40 Mg/0.4 Ml Syringe) 40 mg SQ DAILY@2100 [facility] Last Admin: 04/25/21 20:24 Dose: 40 mg Documented by: Erythromycin (Erythromycin 5 Mg/Gm Ophth Oint 3.5 Gm Tube) 1 applic LEFT EYE [facility] Last Admin: 04/25/21 20:24 Dose: 1 applic Documented by: Gabapentin (Gabapentin 100 Mg Cap) 100 mg PO TID [facility] Last Admin: 04/25/21 20:24 Dose: 100 mg Documented by: Sodium Chloride (Saline 0.9%) 1,000 mls @ 100 mls/hr IV .Q10H [facility] Last Admin: 04/25/21 20:25 Dose: 100 mls/hr Documented by: Miscellaneous Information (Pneumonia Protocol Utilized [facility] 1 each PO ONCE PRN PRN Reason: Per Protocol Non-Formulary Medication (Mirabegron [Myrbetriq]) 25 mg PO DAILY [facility] Last Admin: 04/25/21 11:03 Dose: Not Given Documented by: Nystatin (Nystatin 100,000 Unit/Gm Powd 15 Gm) 1 applic TOPICAL BID [facility] Last Admin: 04/25/21 20:25 Dose: 1 applic Documented by: Potassium Chloride (Potassium Chloride Er 10 Meq Tab.Er.Prt) 10 meq PO DAILY [facility] Last Admin: 04/25/21 09:35 Dose: 10 meq Documented by: Sertraline HCl (Sertraline 100 Mg Tab) 100 mg PO DAILY [facility] Last Admin: 04/25/21 09:37 Dose: 100 mg Documented by: Silver Sulfadiazine (Silver Sulfadiazine 1% Cream 25 Gm Tube) 1 applic TOPICAL DAILY [facility] Last Admin: 04/25/21 09:42 Dose: 1 applic Documented by: Sodium Chloride (Sodium Chloride 0.9% Flush 10 Ml Syringe) 10 ml IV BID [facility] Last Admin: 04/25/21 09:37 Dose: 10 ml Documented by: Past medical history to include: Hypertension, hyperlipidemia, stroke with left-sided weakness, dysarthria, uses a wheelchair and a walker, anxiety Social history: Uses a wheelchair and a walker. Smoked a pack a day for close to 60 years, stopped about 2 years ago. No alcohol. Physical examination: VITAL SIGNS: 98.4, 88, 16, 100/50, 94% room air GENERAL: Laying in bed, more relaxed today EYES: Pupils equal. Left lower eyelid is everted NECK: JVD not raised; masses not palpable. HEART: First and second heart sounds are normal; some edema. LUNGS: Respiratory rate increased; decreased breath sounds ABDOMEN: Soft, nontender, liver spleen not palpable, no masses palpable. PSYCH: Alert and oriented x3; mood and affect anxious and irritated. NEUROLOGICAL: Mild dysarthria. Weakness of the left side of the face. Increased palpebral fissure. Power of the left arm is 4/5. Power of the left leg is 1/5. Patient got tenderness in both the leg superficial MUSCULAR skeletal: Evidence of OA INVESTIGATIONS, reviewed in the clinical context: Pro-calcitonin 1.38 Computed tomography scan chest abdomen pelvis contrast: 5.6 cm masslike density in the left lower lobe. This is new compared to the CAT scan from 2019 Rest nonspecific. April 24: Potassium 4.1 creatinine 0.6 WBC 9 hemoglobin 9.9 platelets 519 potassium 3.7 creatinine 0.61 Coronavirus [PCR]-not detected Doppler ultrasound lower extremity: No obvious evidence of DVT Chest x-ray film personally reviewed by me-shows a mass on the left side and on the right side Assessment and plan: -Bilateral lower extremity swelling likely from venous insufficiency from decreased activity Bilateral Daniel wraps. No Lasix. -Lung masses-left lower lobe 5.6 cm Will need bronchoscopy with biopsy. Off Plavix. -Possible pneumonia IV ceftriaxone -Chronic medical debility At her baseline uses a wheelchair/walker -Hyperlipidemia Continue Lipitor -Baseline dysarthria from prior stroke Able to tolerate diet -Left hemiparesis sitting to prior stroke Continue Plavix -Depression and anxiety not otherwise specified Continue with Zoloft -Chronic urinary stress incontinence Continue with myebetriq -Painful peripheral neuropathy Neurontin 100 mg 3 times a day Patient on IV ceftriaxone for pneumonia. Peripheral neuropathy better with Neurontin. 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 Patient stable for discharge when bed is available at rehab
[2021-04-26] MEDS: SODIUM CHLORIDE 0.9% 1,000 ML IV SCH (10:05)
[2021-04-26] MEDS: SERTRALINE 100 MG TAB PO SCH (10:06)
[2021-04-26] MEDS: CLOPIDOGREL 75 MG TAB PO SCH (10:06)
[2021-04-26] MEDS: NON FORMULARY DRUG (Mirabegron [Myrbetriq] 25 MG Tab.Er.24h) PO SCH (10:06)
[2021-04-26] MEDS: GABAPENTIN 100 MG CAP PO SCH ×2 (10:06→16:32)
[2021-04-26] MEDS: POTASSIUM CHLORIDE ER 10 MEQ TAB.ER.PRT PO SCH (10:06)
[2021-04-26] MEDS: NYSTATIN 100,000 UNIT/GM POWD 15 GM TOPICAL SCH (10:07)
[2021-04-26 11:39] VITALS: TEMP 97.8
--- NOTE | 2021-04-26 14:35 | P.DS ---
Providers Date of admission: 04/23/21 20:10 Expected date of discharge: 04/26/21 Attending physician: Magno Au Consults: 04/24/21 01:40 Consult Physician Routine Consulting Provider: Ameya Woodard Consult Reason/Comments: pulmonary management Do you want consulting provider notified?: Already Contacted [facility] Course: Chief Complaint: Lower extremity swelling History of presenting complaint: This is a 75-year-old patient , being followed by Dr. Hensley from visiting physician. Chronic stable medical conditions include hypertension, hyperlipidemia with prior stroke. That has left the patient weak left side. She is able to move her left arm and little bit, not her leg. Has a baseline dysarthria. Able to swallow. Has a wheelchair and a walker at home. It's unclear to the circumstances exactly what the patient's here and does seem the patient having increasing swelling of the lower extremity. Patient states that her niece sent in. Her appetite is okay. Denies any obvious fever and chills. Questionable shortness of breath. Admitted with bilateral lower extremity swelling felt to be from venous insufficiency from decreased activity. Patient did receive IV Lasix in the ER. He did drop her blood pressure. Did get some fluid resuscitation. Patient started on Neurontin for painful peripheral neuropathy. Left lung mass will be followed by Dr. Woodard as an outpatient with a possible view to bronchoscopy and biopsy. There was a possibility of pneumonia. Given IV ceftriaxone. Today: Laying in bed. Comfortable. Oral intake fair. Painful peripheral neuropathy well controlled. We'll go to the ECF. Changed to oral Ceftin. Patient's and family at the bedside. Questions answered. Discussion and discharge planning more than 35 minutes Consultation: Dr. Woodard from pulmonary Past medical history to include: Hypertension, hyperlipidemia, stroke with left-sided weakness, dysarthria, uses a wheelchair and a walker, anxiety Social history: Uses a wheelchair and a walker. Smoked a pack a day for close to 60 years, stopped about 2 years ago. No alcohol. Physical examination: VITAL SIGNS: 97.8, 95, 18, 102/48, 95% room air GENERAL: Laying in bed, comfortable EYES: Pupils equal. Left lower eyelid is everted NECK: JVD not raised; masses not palpable. HEART: First and second heart sounds are normal; some edema. LUNGS: Respiratory rate increased; decreased breath sounds ABDOMEN: Soft, nontender, liver spleen not palpable, no masses palpable. PSYCH: Alert and oriented x3; mood and affect anxious and irritated. NEUROLOGICAL: Mild dysarthria. Weakness of the left side of the face. Increased palpebral fissure. Power of the left arm is 4/5. Power of the left leg is 1/5. Patient got tenderness in both the leg superficial MUSCULAR skeletal: Evidence of OA INVESTIGATIONS, reviewed in the clinical context: Pro-calcitonin 1.38 Computed tomography scan chest abdomen pelvis contrast: 5.6 cm masslike density in the left lower lobe. This is new compared to the CAT scan from 2019 Rest nonspecific. April 24: Potassium 4.1 creatinine 0.6 WBC 9 hemoglobin 9.9 platelets 519 potassium 3.7 creatinine 0.61 Coronavirus [PCR]-not detected Doppler ultrasound lower extremity: No obvious evidence of DVT Chest x-ray film personally reviewed by me-shows a mass on the left side and on the right side Assessment and plan: -Bilateral lower extremity swelling likely from venous insufficiency from decreased activity Bilateral Daniel wraps. No Lasix. -Lung masses-left lower lobe 5.6 cm Will need bronchoscopy with biopsy. -Follow up outpatient with Dr. Woodard -Possible pneumonia IV ceftriaxone-changed over to Ceftin -Chronic medical debility At her baseline uses a wheelchair/walker -Hyperlipidemia Continue Lipitor -Baseline dysarthria from prior stroke Able to tolerate diet -Left hemiparesis sitting to prior stroke Continue Plavix -Depression and anxiety not otherwise specified Continue with Zoloft -Chronic urinary stress incontinence Continue with myebetriq -Painful peripheral neuropathy-improved Neurontin 100 mg 3 times a day [facility] - [facility]charge Summary Discharge Rx Participant: No New Discharge Prescriptions: New Gabapentin [Neurontin] 100 mg PO TID #9 cap Continue Atorvastatin [Lipitor] 20 mg PO HS Clopidogrel [Plavix] 75 mg PO DAILY Sertraline HCl [Zoloft] 100 mg PO DAILY SILVER sulfADIAZINE Cream [Silvadene 1% Cream] 1 applic TOPICAL DAILY Nystatin [Nystop] 1 applic TOPICAL BID Mirabegron [Myrbetriq] 25 mg PO DAILY Erythromycin Ophth Oint [Romycin Ophth Oint] 5 mg LEFT EYE HS HYDROcodone/APAP 7.5-325MG [Fletcher 7.5-325] 1 tab PO HS PRN #3 tab PRN Reason: Pain Discontinued Potassium Chloride [Klor-Con 8] 8 meq PO DAILY Torsemide [Demadex] 50 mg PO DAILY Discharge Medication List Atorvastatin [Lipitor] 20 mg PO HS 01/13/19 [History] Clopidogrel [Plavix] 75 mg PO DAILY 10/01/20 [History] Mirabegron [Myrbetriq] 25 mg PO DAILY 04/23/21 [History] Nystatin [Nystop] 1 applic TOPICAL BID 04/23/21 [History] SILVER sulfADIAZINE Cream [Silvadene 1% Cream] 1 applic TOPICAL DAILY 04/23/21 [History] Sertraline HCl [Zoloft] 100 mg PO DAILY 04/23/21 [History] Erythromycin Ophth Oint [Romycin Ophth Oint] 5 mg LEFT EYE HS 04/25/21 [History] Gabapentin [Neurontin] 100 mg PO TID #9 cap 04/26/21 [Rx] HYDROcodone/APAP 7.5-325MG [Fletcher 7.5-325] 1 tab PO HS PRN #3 tab 04/26/21 [Rx] Follow up Appointment(s)/Referral(s): Franko Mccarty, [NON-STAFF] - As Needed Yuri Hensley MD [Primary Care Provider] - 1-2 days
--- NOTE | 2021-04-26 15:18 | CDI ---
Documentation Clarification Form Date: 04/26/2021 02:59:51 PM From: Elizabeth Rider Admit Date: 04/23/2021 08:10:00 PM Patient Name: Kim Falcon Visit Number: [id number] Discharge Date: ATTENTION: The Clinical Documentation Specialists (CDI) and [facility] Coding Staff appreciate your assistance in clarifying documentation. Please respond to the clarification below the line at the bottom and electronically sign. The CDI & [facility] Coding staff will review the response and follow-up if needed. Please note: Queries are made part of the Legal Health Record. If you have any questions, please contact the author of this message via ITS. Dr. Magno Au A right hip, stage II pressure ulcer is documented by Nursing 04/25 under pressure ulcer assessment. Based on this information and the findings below, is there an additional diagnosis that is clinically appropriate for this patient? History/Risk Factors: 75-yearold female presents to the ED with increasing swelling of the lower extremity. Medical History: HTN, HLD and Stroke with left sided weakness uses wheelchair and walker. H&P 04/23 Clinical Indicators: Two-person assist Fall precautions. 04/24 Daily assessment. Location: Right Hip Wound description: Mony wound moisture: No Abnormality; Mony-wound color: Ecchymosis; Mony wound Temperature: No abnormality (patient warm); Mony wound Tenderness on palpation: Yes. Treatment:04/23: Optifoam gentle liquid; Sure-prep no Sting;Foam with border; Optifoam; Absorbant Underpad; Check hourly. Is there an additional diagnosis that is clinically appropriate for this patient? [ ] Right Hip Pressure Ulcer Stage 2 [ ] Other condition, please specify [ ] Unable to determine Clinical Definitions: Stage 1 Pressure Ulcer: intact skin, non-blanching redness of local area Stage 2 Pressure Ulcer: Partial thickness, loss of dermis, pink wound bed Stage 3 Pressure Ulcer: Full thickness tissue loss Stage 4 Pressure Ulcer: Full thickness tissue loss with exposed bone, tendon, or muscle. Unstageable pressure ulcer: Full thickness tissue loss in which the base of the ulcer is covered by slough (yellow, carlton, potter, green or brown) and/or eschar (carlton, brown or black) in the wound bed. (Template Last Revised: January 2021) Right hip pressure ulcer stage II MTDD
--- NOTE | 2021-04-26 15:26 | P.PN ---
Subjective Progress Note Date: 04/26/21 Principal diagnosis: Hypotension likely due to intravascular volume depletion and dehydration responded well with as been given will monitor observe if reoccurred may consider midodrine Left lower lobe pneumonia versus neoplasm, review of the x-ray film 2018 were showing this masslike infiltrate Left-sided weakness due to prior stroke Dyslipidemia Generalized weakness and medical debility 07/27/2021, patient seen eval examined during the rounds labs reviewed medications reviewed, patient on room air saturation 95% hemodynamic status stable, remains afebrile, and has been getting broad-spectrum antibiotics along with gentle rehydration, being continued on home medications, patient has refused biopsy and bronchoscopy of the left lung lower lobe mass 04/25/2021, patient seen eval examined during the rounds labs reviewed medications reviewed care plan discussed, respiratory status remains stable denies any chest pain able to get up and move around with support and help, swelling of the lower extremity improved now I have discussed with niece as well as the patient at length, patient expresses that she does not want any biopsy to be done for the left lower lobe mass, she has declined biopsy in the past as well according to her, she also expresses that Lord give it and will take it away if he wants to This is a pleasant 75-year-old female patient came into the hospital increased swelling of the lower extremity edema, patient has a history of the dyslipidemia stroke with residual left-sided weakness, patient use a walker at home and wheelchair, patient used to smoke extensively came into the hospital with ongoing intermittent shortness of breath also lower extremity swelling overnight patient developed hypotension blood pressure was 80/54, heart rate 116 patient remains afebrile, oxygen saturation was 97%, however responded with albumin, currently stable with blood pressure 110/70 respiratory rate 20 heart rate 92 and temperature 90.8, patient underwent chest x-ray admitted revealed left lower lobe infiltrate versus mass and right upper lobe density likely neoplasm versus pneumonia however computed tomography scan of the chest failed to reveal right upper lobe nodule however 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 Q10H REPLACED BY [facility] Rx#:[id number] cefTRIAXone 1 gm In 100 Sodium Chloride 0.9% 50 ml @ 100 mls/hr IVPB Q12H REPLACED BY [facility] Rx#:[id number] Oral 660 540 Output: Urine 400 Other: Voiding Method Diaper Diaper Diaper External Catheter External Catheter External Catheter # Bowel Movements 1 1 - Exam - Constitutional General appearance: average body habitus, cooperative, disheveled, mild distress - EENT Eyes: PERRLA Ears: bilateral: normal - Neck Neck: normal ROM Carotids: bilateral: upstroke normal Thyroid: bilateral: normal size - Respiratory Respiratory: bilateral: diminished - Cardiovascular Rhythm: regular Heart sounds: normal: S1, S2 - Gastrointestinal General gastrointestinal: normal bowel sounds - Integumentary Integumentary: normal turgor - Neurologic Neurologic: CNII-XII intact - Musculoskeletal Musculoskeletal: gait normal, generalized weakness, left sided weakness - Psychiatric Psychiatric: A&O x's 3, appropriate affect, intact judgment & insight - Labs CBC & Chem 7: 04/23/21 17:07 04/24/21 11:59 Labs: Abnormal Lab Results - Last 24 Hours (Table) 04/25/21 Range/Units 12:17 Procalcitonin 1.38 H (0.02-0.09) ng/mL Microbiology - Last 24 Hours (Table) 04/23/21 20:34 Blood Culture - Preliminary Blood No Growth after 48 hours 04/23/21 20:34 Blood Culture - Preliminary Blood No Growth after 48 hours Assessment and Plan Assessment: Left lower lobe mass multilobulated Hypotension likely due to intravascular volume depletion and dehydration responded well with as been given will monitor observe if reoccurred may consider midodrine Left lower lobe pneumonia versus neoplasm, review of the x-ray film 2019 were showing this masslike infiltrate Left-sided weakness due to prior stroke Dyslipidemia Generalized weakness and medical debility Plan: As per her wishes we'll continue to monitor and observe and not to do biopsy or bronchoscopy Continue antibiotics Gentle rehydration PT OT evaluation increase activity as tolerated Further plan of care as per clinical response of the patient Time with Patient: Greater than 30
[2021-04-26 16:31] VITALS: BP 100/55; PULSE 75
== END 2021-04-26 18:23 | DRG 299 ==
LOC: EC 16:36 → 4SSUR 20:10 → 2SICU 04-24 01:54 → 3SCARD 04-24 08:43
PROVIDERS: ADMIT Hospitalist; ATTEND Hospitalist
DX: I87.2 Venous insufficiency (chronic) (peripheral) (principal); J18.9 Pneumonia, unspecified organism; I69.354 Hemiplegia and hemiparesis following cerebral infarction affecting left non-dominant side; E78.5 Hyperlipidemia, unspecified; I10 Essential (primary) hypertension; L89.212 Pressure ulcer of right hip, stage 2; G62.9 Polyneuropathy, unspecified; N39.3 Stress incontinence (female) (male); Z79.02 Long term (current) use of antithrombotics/antiplatelets; F41.9 Anxiety disorder, unspecified; Z79.899 Other long term (current) drug therapy; Z87.891 Personal history of nicotine dependence; Z99.3 Dependence on wheelchair; E86.0 Dehydration; I95.9 Hypotension, unspecified; F32.9 Major depressive disorder, single episode, unspecified; I69.322 Dysarthria following cerebral infarction; R53.81 Other malaise; Z20.822 Contact with and (suspected) exposure to COVID-19
CPT/HCPCS: 36415; 71045; 71046; 71260; 74177; 80048; 80053; 83605; 83735; 83880; 84145; 85025; 87040; 87635; 93005; 93970; 96374; 99285